=== PATIENT | female | born 1990 | race Caucasian/White ===

== ENCOUNTER 2024-06-11 12:49 | Outpatient (CLI) | payer OTHER, SELFPAY ==
[2024-06-11 13:06] LABS: Hematocrit 35.5 % (37.0-47.0); Hemoglobin 11.4 g/dL (12.0-15.0)
== END 2024-06-11 12:50 | disposition home or self-care (01) ==
LOC: ANHLAB 12:52
PROVIDERS: Visit Provider Anesthesiology
DX: Z01.818 Encounter for other preprocedural examination (principal); D64.9 Anemia, unspecified
CPT/HCPCS: 36415; 85014; 85018

== ENCOUNTER 2024-06-14 01:16 | Day surgery (SDC) | payer OTHER, SELFPAY ==
[2024-06-10 14:43] VITALS: BMI 50.3
--- NOTE | 2024-06-10 14:50 | PC.NURSE ---
Report to the Outpatient Waiting Room, entrance under the green pavilion located off [facility], at time _1000_ on date _[id number]_. Planned Procedure Time: _1200_. Time changes happen often and if your time is changed the preop area will call you the afternoon before. - You and your visitor will be asked to self-screen and do not enter if you have any COVID symptoms. - A mask is optional within the hospital at this time. Patients may have clear liquids (water, carbonated beverages, clear teas, apple juice) until 3 hours prior to surgery with a maximum of 20 ounces. - No food from midnight until time of surgery Take the following medications with a SIP of water the morning of surgery: _None DO NOT STOP ANY OF YOUR OTHER PRESCRIPTION MEDICATIONS PRIOR TO SURGERY ?EXCEPT THE FOLLOWING Medications to discontinue per physician ____Fish oil Date to take last fewz__[id number] Ryan's office if Ok to continue taking Ibuprofen. Please no make-up, nail faroese, hairspray, perfume, deodorant, or body powder the day of surgery. No jewelry (including any body piercings) or valuables the day of surgery, leave them at home. Please take a shower or bath the night before, or the morning of, surgery with an antibacterial soap. Wear comfortable, loose fitting clothing. - Jewelry must be removed prior to entering the operating room. Rings and piercings that are not removed may be cut off. - The hospital will not accept responsibility for valuables. - Please leave all valuables, including medications, at home the day of surgery. If you are going home after surgery, a licensed racing driver must drive you home. - NO public transportation without another adult if you receive anesthesia. - We recommend that an adult stay with you for 24 hours following discharge. - We also recommend that you do not drive, make important decision, drink alcoholic beverages, or take any drugs that were not prescribed by your health care provider for at least 24 hours after your discharge time. Follow any additional instructions given to you from your surgeon. If you or anyone in your household have experienced Covid symptoms in the past week, please notify your surgeon or the nurse liaison at the phone number below for possible testing. Telephone instructions given to __Coral__and asked if any additional questions and then verbalized understanding. Patient advised to call surgeon office or pre surgery nurse liaison [phone] if any additional questions.
--- NOTE | 2024-06-14 09:22 | WPDANESEPPF ---
Anes - Initial Pre Proc Eval Procedure: Operation Date: 06/14/24 12:00 Proposed Procedures p Hysteroscopy with Biopsy Endometrium and/or Polypectomy, Dilation and Curettage - Edvin Ryan MD Date/Time: 06/14/24 09:22 Surgeon: Edvin Ryan MD Pre Op Diagnosis: Irg Periods Patient Data Age: 34 Gender: F Height: 1.78 m Weight: 159 kg Allergies Allergy/AdvReac Type Severity Reaction Status Date / Time No Known Allergies Allergy Verified 06/14/24 10:51 Home Medications Medication Instructions Recorded Confirmed Type ferrous sulfate, dried 144 mg (45 144 mg PO BID 06/10/24 06/14/24 History mg iron) tablet,extended release (Slow Release Iron) ibuprofen 600 mg tablet 600 mg PO TID 06/10/24 06/14/24 History omega 7-hps-qlw-fish oil 1,200 mg 1 cap PO DAILY 06/10/24 06/14/24 History (144 mg-216 mg) capsule (Fish Oil) Patient hx anesthesia problems: none Family hx anesthesia problems: none Results Review: All pre-operative results and documents have been reviewed as part of the pre-operative evaluation. [facility] Social History Social History Smoking status: Never smoker Alcohol intake: current Living arrangements: with family Spiritual care concerns: No Anes - Eval Final PreProcedure Day of Procedure 06/14/24 09:22 Patient weight: super morbidly obese Heart: regular rate and rhythm Lungs: clear to auscultation Airway: Mallampati scale class III Neurological: alert and oriented Last oral intake: >/= 8 hours ASA classification: III Emergent: no Anesthetic plan: proceed Anesthesia type and monitoring: general GIVS and standard monitoring Results Review: All pre-operative results and documents have been reviewed as part of the pre-operative evaluation. Informed Consent: The patient's anesthetic plan and its attendant risks and benefits were discussed with the patient/family/POA. Questions were solicited and answers provided to the satisfaction of the patient/family/POA.
[2024-06-14 10:43] VITALS: BP 154/99; PULSE 84; RESP 14; TEMP 36.8; O2SAT 100
[2024-06-14] MEDS: LACTATED RINGERS 1,000 ML 30 ML IV CONT (10:48)
[2024-06-14 10:50] LABS: BEDSIDEPREGUCG Negative
[2024-06-14] MEDS: ACETAMINOPHEN 500 MG TABLET 1000 MG PO (10:50)
--- NOTE | 2024-06-14 11:45 | PM.IMHP ---
H&P: HPI History of Present Illness Date/Time: 06/14/24 11:45 Chief Complaint: irregular bleeding Narrative: Patient is a 34 year old female who presents for hysteroscopy and polypectomy. She reports a history of abnormal uterine bleeding since miscarriage in October, with episodes of heavy and weeks-long bleeding. She denies abdominal pain. Pelvic US showed an area suspicious for retained products vs endometrial polyp. She desires surgical management of AUB. Denies abdominal pain, nausea, vomiting, or dysuria today. Review of Systems Review of Systems: All systems reviewed & are unremarkable except as noted in HPI and below PMFSH Social History Social History Smoking status: Never smoker Alcohol intake: current Living arrangements: with family Spiritual care concerns: No Meds Home Medications and Allergies Home Medications Medication Instructions Recorded Confirmed Type ferrous sulfate, dried 144 mg (45 144 mg PO BID 06/10/24 06/14/24 History mg iron) tablet,extended release (Slow Release Iron) ibuprofen 600 mg tablet 600 mg PO TID 06/10/24 06/14/24 History omega 0-gvm-aux-fish oil 1,200 mg 1 cap PO DAILY 06/10/24 06/14/24 History (144 mg-216 mg) capsule (Fish Oil) Allergies Allergy/AdvReac Type Severity Reaction Status Date / Time No Known Allergies Allergy Verified 06/14/24 10:51 Vital Signs Vital Signs - 24 hr 06/14/24 10:43 Temperature 98.2 F Pulse Rate 84 Respiratory Rate 14 Blood Pressure 154/99 H Pulse Oximetry 100 Oxygen Delivery Room Air Exam Const: General: comfortable and no acute distress HENMT: Mouth: Yes moist mucous membranes Resp: Effort & Inspection: normal respiratory effort Cardio: Rate: regular rate Extrem: General: normal to inspection Psych: Mental Status: mental status grossly normal Assessment and Plan Assessment and plan (1) Abnormal uterine bleeding (AUB): Code(s): N93.9 - Abnormal uterine and vaginal bleeding, unspecified Status: Acute Assessment and Plan: - heavy and irregular bleeding since October (s/p miscarriage) - Previously normal and regular periods - pelvic US demonstrates 18mm endometrium with vascularity similar to polyp or retained products of conception - risks and benefits of hysteroscopy and polypectomy discussed with patient who desires to proceed with procedure
--- NOTE | 2024-06-14 11:49 | WPDHPUPDATE1 ---
History and Physical Update Update Date/Time: 06/14/24 11:49 History and Physical has been reviewed, including an updated exam of the patient. There are NO changes in the patient's condition. Risks, benefits, and alternatives have been discussed and questions answered. Patient agrees to proceed with procedure.
--- NOTE | 2024-06-14 12:01 | P.OP_ITS ---
Procedure Note - Detailed Date of Procedure 06/14/24 Pre-op Diagnosis Irg Periods Post-op Diagnosis Same Procedure Performed hysteroscopy and polypectomy Surgeon Edvin yRan MD Anesthesia MAC and Local Findings Shaggy endometrium seen throughout cavity Description of Procedure The patient was taken to the operating room with IVFs running. She was placed into the dorsal supine position where she received MAC without any difficulty. The patient was placed in the dorsal lithotomy position using Fantasma stirrups. EUA revealed findings as above. She was then prepped and draped in a normal sterile fashion. A time-out procedure was performed and all members of the OR team agreed on the patient and plan. A bivalve speculum was then inserted into the patient's vagina. The anterior lip of the cervix was grasped with a single tooth tenaculum. The uterus was gently sounded to 10 cm. The hysteroscope was then inserted into the uterine cavity using saline as the distension media and revealed the above findings. Both ostia were identified and pictures were taken. At this point, the morcellator was then introduced into the hysteroscope and calibrated. The tip of the morcellator was then applied to the endometrium. A broad sampling of the endometrium was obtai jaleel. The fluid deficit was 100 cc. The specimen was sent for pathology. The hysteroscope and tenaculum were removed. The speculum was then reintroduced into the vagina and the anterior lip of the cervix was hemostatic. The speculum was then removed. The patient tolerated the procedure well. Sponge, lap, and instrument counts were correct X2. The patient was taken out of the dorsal lithotomy position and was awakened from anesthesia. She was taken to the recovery room in stable condition. Estimated Blood Loss 10 Pathology Yes Complications No immediate complications Condition Stable Disposition Same day
[2024-06-14] MEDS: LIDO 1%/EPINEPHRINE 1:100,000 20 ML VIAL 10 ML INFILTRATE (12:47)
[2024-06-14] MEDS: SILVER NITRATE (*SP) STICK 2 EACH TOPICAL (13:00)
[2024-06-14 13:06] VITALS: BP 142/68; PULSE 94; RESP 12; O2SAT 95
[2024-06-14 13:35] VITALS: BP 152/86; PULSE 75
[2024-06-14 14:05] VITALS: BP 156/84; PULSE 73
== END 2024-06-14 14:25 | disposition home or self-care (01) ==
PROVIDERS: Anesthesiology; Visit Provider Obstetrics & Gynecology
PROC: 0U5B8ZZ Destruction of Endometrium, Via Natural or Artificial Opening Endoscopic (ICD-10-PCS; CPT 58563; principal; 2024-06-14 12:00)
DX: N93.9 Abnormal uterine and vaginal bleeding, unspecified (principal); E66.01 Morbid (severe) obesity due to excess calories; Z68.43 Body mass index [BMI] 50.0-59.9, adult; Z79.1 Long term (current) use of non-steroidal anti-inflammatories (NSAID)
CPT/HCPCS: 58558; 36415; 85014; 85018; 88305; A9270; J1885; J2250; J2405; J2704; J3010; J7120

== ENCOUNTER 2025-08-31 17:55 | Observation (INO) | payer OTHER, SELFPAY ==
[2025-08-31] VITALS (37 sets, daily range): BP systolic 149–179; BP diastolic 79–89; PULSE 81–94; RESP 18; TEMP 36.3–36.8; O2SAT 97–100; BMI 54.2
[2025-08-31 17:27] LABS: Hematocrit 33.6 % (37.0-47.0); Hemoglobin 11.1 g/dL (12.0-15.0); Immature Granulocyte Percent A 0.4 % (0-0.5); Lymphocytes Absolute Auto 1.37 K/mm3 (0.9-3.2); Mean Corpuscular HGB Conc 33.0 g/dl (32-36); Mean Corpuscular Hemoglobin 29.3 pg (26-34); Mean Corpuscular Volume 88.7 fl (80-100); Nucleated Red Blood Cells Absolute Auto 0.000 K/mm3 (0.0-0.012); Nucleated Red Blood Cells Perc 0.0 % (0.0-0.2); Platelet Count Result 226 k/mm3 (150-375); Red Blood Count 3.79 M/mm3 (4.2-5.4); White Blood Count 10.0 K/mm3 (4.5-10.0)
[2025-08-31 17:31] LABS: Add Urine Microscopic? YES; Appearance Urine Clear (Clear); Glucose Urine UA Negative (Negative); Leukocyte Esterase Ur Trace LEU/UL (Negative); Nitrate Urine Negative (Negative); Non Pathogenic Casts 0-2; Specific Grav Ur 1.010 (1.001-1.035)
[2025-08-31 17:36] LABS: Total Protein Urine Random 20 mg/dL; Ur Ttl Prot Creatinine Ratio 0.39 mg/mg (0-0.20)
[2025-08-31 17:38] LABS: Alanine Aminotransferase 19 U/L (6-35); Albumin Level 3.4 g/dL (3.5-5.1); Alkaline Phosphatase 159 U/L (38-126); Anion Gap 7 mmol/L (4-12); Aspartate Amino Transferase 17 U/L (14-36); Bilirubin,Total 0.7 mg/dL (0.2-1.3); Blood Urea Nitrogen 8 mg/dL (7-17); Calcium 9.7 mg/dL (8.4-10.2); Carbon Dioxide 21 mmol/L (22-30); Chloride 106 mmol/L (98-107); Estimated CRCL calculation 210 ml/min; Estimated Glomerular Filt Rate > 60; Glucose 123 mg/dL (65-110); Potassium 3.9 mmol/L (3.4-5.0); Sodium 134 mmol/L (137-145); Total Protein 7.0 g/dL (6.3-8.2); Uric Acid 3.1 mg/dL (2.5-7.5)
--- OUTSIDE RECORDS SUMMARY | 2025-08-31 17:52 | XMS_ITS | Clinical Summary ---
Author Organization Address [address] [place] [id number] Care Team Providers Care Paralegal Secretary Name Role Phone Barb Loredo NP Primary Care Provider [phone] Allergies No known active allergies Medications Slow Release Iron 144 mg (45 mg iron) tablet extended release Take 1 tablet by mouth 03/06/2024 Active ibuprofen (ADVIL,MOTRIN) 600 mg tablet Take 1 tablet (600 mg total) by mouth every 6 (six) hours as needed for pain Active omega-3 fatty acids-fish oil 300-1,000 mg capsule Take 2 capsules (2 g total) by mouth daily Active Active Problems Problem Noted Date Diagnosed Date Hypertriglyceridemia 04/23/2024 Assessment & Plan (04/23/2024 7:34 PM CDT): - recent triglycerides 161, LDL 121, HDL 44 - overall stable with low ASCVD risk - lifestyle modifications, [place] supplementation - repeat lipid profile Abnormal uterine bleeding 04/23/2024 Assessment & Plan (04/23/2024 7:37 PM CDT): - vaginal US (04/07/2024): Thickened endometrium with multiple small cystic spaces - patient did not want to start hormonal control - continue ibuprofen 600 mg- max of q.6-8 hours p.r.n. for heavy bleeding - awaiting phone circuit operator eval Menorrhagia with irregular cycle 03/14/2024 Assessment & Plan (03/14/2024 11:18 PM CDT): - check CBC, iron profile, ferritin, serum HCG, TSH - most recent hemoglobin 11.5 - start ibuprofen 600 mg every 6 hours p.r.n. to decrease bleeding - pelvic and endovaginal ultrasound - referral to phone circuit operator Hypochromic anemia 03/14/2024 Assessment & Plan (04/23/2024 7:31 PM CDT): - associated with prolonged menstrual bleeding - recent counts stable- hemoglobin 11.1, hematocrit 36, MCV 83.5, MCH 25.8 - iron studies stable - continue ferrous sulfate b.i.d. with breakfast and dinner Assessment & Plan (03/14/2024 11:22 PM CDT): - associated with prolonged menstrual bleeding - most recent hemoglobin 11.5, hematocrit 36, MCV 83.5, MCH 25.8 - take ferrous sulfate b.i.d. with breakfast and dinner- take with vitamin-C or acidic foods such as an orange to enhance absorption, avoid consuming coffee, tea, soda, wine, mild/dairy products within 2 hours of supplement as this will inhibit absorption - follow repeat labs Class 3 severe obesity witho ut serious comorbidity with body mass index (BMI) of 50.0 to 59.9 in adult 03/14/2024 Assessment & Plan (03/14/2024 11:24 PM CDT): - avoid/limit processed, fried/fast foods and simple/refined carbohydrate. Aim to eat plenty of vegetables, whole grains, legumes, lean protein, low-fat dairy, fruit, and include some healthy fats such as olive oil, nuts, avocados, and baked fatty fish such as salmon. - aim to walk at least 30 minutes most days of the week, strength training at least 2-3 times per week-when possible Missed ab 10/19/2023 Resolved Problems Problem Noted Date Diagnosed Date Resolved Date Morbid obesity with BMI of 50.0-59.9, adult 03/14/2024 03/14/2024 Immunizations Immunization Administration Dates Next Due DTP 02/26/1996, 3,04/05/1992,1991, 1 Hep B, Unspecified 02/26/1996,08/22/1995, 995 Hib (PRP-T) 07/27/1993,04/05/1992,1991 ,1991 Influenza, Unspecified 09/09/2023(Deferr ed: Patient Refused),08/25/2023(Deferred: Patient Refused) MMR 07/20/1996,07/27/1993 OPV 02/26/1996,07/27/1993,1991 ,1991 Surgical History Surgery Date Site/Laterality Comments TONSILLECTOMY Bilateral age 10-11 Family History Medical History Relation Name Comments Hypertension Maternal Grandmother Breast cancer Maternal Great-Grandmother Relation Name Status Comments Maternal Grandmother Maternal Great-Grandmother Social History Tobacco Use Types Packs/Day Years Used Date Smoking Tobacco: Never Smokeless Tobacco: Never Tobacco Cessation:Counseling Given: Not Answered AUDIT-C Answer Date Recorded Q1: How often do you have a drink containing alcohol? Never 03/12/2024 Q2: How many drinks containi ng alcohol do you have on a typical day when you are drinking? Patient does not drink Q3: How often do you have si x or more drinks on one occasion? Never 03/12/2024 PHQ-2 Answer Date Recorded PHQ-2 Total Score (If total score is 3 or more points, staff should administer the PHQ-9) 0 03/12/2024 Personal Safety Answer Date Recorded Have you ever been in or are you currently in a harmful physical or emotional relationship or is someone making you feel afraid or unsafe? Denies 03/05/2024 Comments No Sex and Gender Information Value Date Recorded Sex Assigned at Not on file Legal Sex Female 12:28 AM CDT Gender Identity Not on file Sexual Orientation Not on file Obstetrics History Para Term AB IAB SAB Ectopic Multiple Livin g Live Births 2 1 1 1 1 1 1 Date Outcome GA Total Labor Labor/2nd/3rd Weight Sex Type Anes PTL Jade A1 A5 Name Clin 013 Term 38w 0d 3.657 kg (8 lb 1 oz) M Vag-S pont Living Complications: Elina mckenna Hypertension 023 SAB 10w 3d Last Filed Vital Signs Vital Sign Reading Time Taken Comments Blood Pressure 120/80 05/14/2024 8:54 AM CDT Pulse 101 05/14/2024 8:54 AM CDT Temperature 36.6 C (97.9 F) 05/14/2024 8:54 AM CDT Respiratory Rate 20 03/05/2024 7:01 PM CDT Oxygen Saturation 94% 05/14/2024 8:54 AM CDT Inhaled Oxygen Concentration - - Weight 162.9 kg (359 lb 1.6 oz) 05/14/2024 8:54 AM CDT Height 177.8 cm (5' 10) 05/14/2024 8:54 AM CDT Body Mass Index 51.53 05/14/2024 8:54 AM CDT Plan of Treatment Health Maintenance Due Date Last Done Comments Cervical Cancer Screening 1991 Hepatitis C Screening 1991 DTaP/Tdap/Td Vaccine (6 - Tdap) 2002 02/26/1996, 07/27/1993, 04/05/1992, Additional history exists Varicella Vaccines (1 of 2 - 13+ 2-dose series) 2004 Regular Well Visit/Exam 18-64 2009 HPV Vaccines (1 - 3-dose SCDM series) 2018 Depression Screening 03/12/2025 03/12/2024 Influenza Vaccine (#1) 2025 Hepatitis B Screening Completed 02/26/1996 , 08/22/1995, 07/09/1995 Pneumococcal vaccine <65 Aged Out No longer eligible based on patient's age to complete [place] [address] [employer] OPEN ACCESS Care Teams Paralegal Secretary Relationship Specialty Start Date End Date Barb Loredo NP PCP - General [employer] Equipment Mechanic 03/12/24
--- OUTSIDE RECORDS SUMMARY | 2025-08-31 17:52 | XMS_ITS | Clinical Summary ---
Author Organization [facility] Address [address] [place] [address] Care Team Providers Care Printing Assistant Name Role Phone Unavailable Primary Care Provider Unavailabl e Medications No known medications Active Problems Problem Noted Date Diagnosed Date Missed ab 10/19/2023 Family History Medical History Relation Name Comments Breast Cancer Maternal Great-grandmother Colon Cancer Neg Hx Ovarian Cancer Neg Hx Relation Name Status Comments Maternal Great-grandmother Alive Social History Tobacco Use Types Packs/Day Years Used Date Smoking Tobacco: Never Smokeless Tobacco: Never Tobacco Cessation:Counseling Given: Not Answered Alcohol Use Standard Drinks/Week Comments Not Currently 0 (1 standard drink = 0.6 oz pur e alcohol) Feeling Safe Answer Date Recorded Are you in a relationship wi th someone who hurts you emotionally and/or physically? No 10/18/2023 Comments No Sex and Gender Information Value Date Recorded Sex Assigned at Not on file Legal Sex Female 10:38 AM CDT Gender Identity Not on file Sexual Orientation Not on file Last Filed Vital Signs Vital Sign Reading Time Taken Comments Blood Pressure 144/76 10/19/2023 12:30 AM JUNIOR PROJECT MANAGER Pulse 91 10/06/2023 3:54 PM JUNIOR PROJECT MANAGER Temperature - - Respiratory Rate - - Oxygen Saturation - - Inhaled Oxygen Concentration - - Weight 161.9 kg (357 lb) 10/18/2023 11:21 PM JUNIOR PROJECT MANAGER Height 177.8 cm (5' 10) 10/18/2023 11:21 PM JUNIOR PROJECT MANAGER Body Mass Index 51.22 10/18/2023 11:21 PM JUNIOR PROJECT MANAGER Plan of Treatment Health Maintenance Due Date Last Done Comments DTAP/TDAP/TD VACCINES (6 - Tdap) 2002 02/26/1996, 07/27/1993, 04/05/1992, Additional history exists HPV/Cotest (21-29) 2012 HPV VACCINES (1 - 3-dose SCD M series) 2018 CERVICAL CANCER SCREENING 2021 HPV/Cotest (30-65) 2021 PAP SMEAR 2021 INFLUENZA VACCINE (#1) 2025 HEPATITIS B VACCINES Completed 02/26/1996, 08/22/1995, 07/09/[address] [place] [address] [facility] O Advance Directives For more information, please contact: [phone] * Full Code (Latest Code Status on File) Date Activated Date Inactivated Comments 10/18/2023 11:26 PM 10/19/2023 4:17 AM
--- OUTSIDE RECORDS SUMMARY | 2025-08-31 17:52 | XMS_ITS | Data Portability ---
Author Organization [facility] [place] Address [address] [place] [address] Assessment Encounter Date Assessment Date Assessment LastModified by Organization Details LastModified Time 08/26/2025 08/26/2025 Patient is _33__weeks . Discussed plan. [email or web address] Not available 08/26/2025 10:47:11 08/31/2025 08/31/2025 Patient is _34__weeks . Discussed plan. Not available 08/31/2025 17:38:43 Plan of Treatment Reminders Order Date Submit Date Provider Last Modified By Organization Details Last Modified Time Details Appointments U/S OB BPP 2024 04:30P M ULTRASOUND Not available Not available Not available OB ROUTINE 2024 05:00P M Sondra Jesus CNM Not available Not available Not available U/S OB BPP 2024 02:30P M ULTRASOUND Not available Not available Not available NST 2024 03:00P M NST SCHEDULE Not available Not available Not available OB ROUTINE 2024 03:30P M JEANETH RYAN MD Not available Not available Not available U/S OB BPP 2024 09:00A M ULTRASOUND Not available Not available Not available NST 2024 09:30A M NST SCHEDULE Not available Not available Not available OB ROUTINE 2024 10:00A M JEANETH RYAN MD Not available Not available Not available U/S OB BPP 2024 09:30A M ULTRASOUND Not available Not available Not available NST 2024 10:00A M NST SCHEDULE Not available Not available Not available OB ROUTINE 2024 10:45A M JEANETH RYAN MD Not available Not available Not available Lab None recorde d. Referral None recorde d. Procedures None recorde d. Surgeries None recorde d. Imaging non-str ess test 2024 [email or web address] [facility], [address], [place], [address], 08/26/2025 10:47:09 US, obstetr ic, biophys ical profile + non-str ess test 2024 025 ELIANE [facility], [address], [place], [address], 08/26/2025 13:01:12 Medication Orders None recorde d. Patient TargetsNo targets recorded. Patient InstructionsNo instructions recorded. Reason for Referral None Reported. Results Created Date Observation Date Name Description Value Unit Range Abnormal Flag Note LastModifiedBy Organization Detail LastModifiedTime 08/16/2008/16/2025 US, obste tric, follo w-up No observ ation record ed. [email or web address] [facility] [address], [place], [address], 08/16/2025 16:46:22 08/16/2008/16/2025 US, obstvalente tric, bioph ysica l profi le + non-s tress test No observ ation record ed. [email or web address] [facility] [address], [place], [address], 08/16/2025 16:46:32 08/16/2008/16/2025 US, obste tric, follo w-up No observ ation record ed. [email or web address] [place] [address], [place], [address], 08/16/2025 17:03:25 08/16/20 25 08/16/2025 non-s tress test No observ ation record ed. [email or web address] [place] [address], [place], [address], 08/19/2025 17:43:10 08/16/20 non-s tress test No observ ation record ed. [email or web address] [facility] [address], [place], [address], 08/19/2025 17:43:11 08/26/2008/26/2025 US, obste tric, follo w-up No observ ation record ed. [email or web address] [address] [address], [place], [address], 08/26/2025 12:11:40 08/26/2008/26/2025 US, obste tric, bioph ysica l profi le + non-s tress test No observ ation record ed. [email or web address] [facility] [address], [place], [address], 08/26/2025 13:01:12 08/26/2008/26/2025 non-s tress test No observ ation record ed. [email or web address] [place] [address], [place], [address], 08/26/2025 10:41:31 Result Notes None recorded. Problems Name Problem SNOMED Code Status Onset Date Resolution Date Notes Provider Name and Address Organization Details Recorded Time Past history of gestation al hypertens ion 532306158 Active 2024 Sondra Jesus CNM [address], [place], [address], [place] [facility] 09:42:17 58085601 Active 2024 Caprice Rojas [facility], [place] - [facility] 5 09:30:00 Obesity 278890767 Active 2024 testing 162 mg bASA Sondra Jesus CNM [address], [place], [address], [facility] 09:41:59 Past history of gestation al hypertens ion 280756086 Active 2024 Sondra Jesus CNM [address], [place], [address], [facility] 09:42:17 Hypertens mushtaq disorder 19410246 Active 2024 labetalol 200mg bid , BP BID at home bASA x2 daily - home cuff c/w office cuff, white coat HTN, normal at home - baseline labs wnl JEANETH RYAN MD [address], [place], [address], [facility] 12:15:27 Anemia 635850864 Active 2024 Hgb 10.9 at new OB labs JEANETH RYAN MD [address], [place], [address], [facility] 12:17:50 History of abnormal cervical Papanicol aou smear 679772579 Active 202404/05/2025 neg pap HPV high risk Caprice Rojas null, [facility] 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 12:17:38 Problem Notes None recorded. Procedures Surgical History Date Name Laterality Status Provider Name and Address Organization Details Recorded Time 04/05/20 25 Date of Last Pap Smear completed Caprice Rojas [facility] 04/05/2025 10:02:32 06/14/20 24 hysteroscopic excision of polyp of uterus completed JEANETH RYAN MD [address], [place], [address], [facility] 08/04/2024 15:15:19 11/17/19 08 Tonsillectomy completed Deisy Siegel [facility] 05/04/2024 15:03:38 Imaging Results None recorded. Procedure Notes None recorded. Medical Equipment None Reported. Allergies No known drug allergies Medications Name Sig Start Date Stop Date Status Note LastModified by Organization Details LastModified Time slow release iron 45mg tablets TAKE 1 TABLET BY MOUTH 2 TIMES A DAY WITH MEALS 05/04 completed Not Available Not Available Not Available medroxyprog esterone 10 mg tablet Take 1 tablet every day by oral route for 10 days. 03/07 completed Not Available Not Available Not Available prednisone 10 mg tablet TAKE 3 TABLETS BY MOUTH DAILY FOR 3 DAYS THEN TAKE 2 TABLETS BY MOUTH DAILY FOR 3 DAYS THEN TAKE 1 TABLET BY MOUTH DAILY FOR 3 DAYS 06/22 completed Not Available Not Available Not Available doxycycline hyclate 100 mg capsule TAKE ONE CAPSULE BY MOUTH TWICE DAILY X 5 DAYS 06/22 completed Not Available Not Available Not Available labetalol 200 mg tablet TAKE 1 TABLET BY MOUTH TWICE DAILY active Not Available Not Available No t Available benzonatate 200 mg capsule TAKE 1 CAPSULE BY MOUTH 2 TO 3 TIMES PER DAY NEEDED FOR COUGH 03/07 completed Not Available Not Available Not Available doxycycline monohydrate 100 mg tablet TAKE 1 TABLET BY MOUTH TWICE DAILY FOR 10 DAYS 05/04 completed Not Available Not Available Not Available amoxicillin 500 mg tablet TAKE 1 TABLET BY MOUTH EVERY 8 HOURS UNTIL ALL TAKEN 08/25 completed Not Available Not Available Not Available ondansetron 8 mg disintegrat ing tablet DISSOLVE 1 TABLET ON THE TONGUE TWICE DAILY 04/04 completed Not Available Not Available Not Available ibuprofen 600 mg tablet 06/22 completed Not Available Not Available Not Available letrozole 2.5 mg tablet TAKE 2 TABLETS BY MOUTH EVERY DAY FOR 5 DAYS 03/07 completed Not Available Not Available Not Available Fish Oil 03/07 completed Not Available Not Available Not Available iron 1 daily active Not Available Not Avail able Not Available active Not Available Not Avai lable Not Available Baby Aspirin 1 daily active Not Available Not Available Not Available Slow Release Iron 140 mg (45 mg iron) tablet,exte nded release 05/04 completed Not Available Not Available Not Available Slow Release Iron 144 mg (45 mg iron) tablet,exte nded release TAKE 1 TABLET BY MOUTH TWICE DAILY WITH MEALS 08/02 completed Not Available Not Available Not Available Vitals Date Recorded Body height Body mass index (BMI) Body weight Systolic And Diastolic Provider Name and Address Organization Details Last Updated DateTime 08/26/2025 177.8 cm 54.1 kg/m2 450250.32 g 137/83 mm[Hg] [facility] 08/26/2025 10:32:47 Date Recorded Body height Body mass index (BMI) Body weight Systolic And Diastolic Systolic And Diastolic Provider Name and Address Organization Details Last Updated DateTime 08/31/2025 177.8 cm 55 kg/m2 171058.8 8 g 161/95 mm[Hg] 167/95 mm[Hg] [facility] 17:26:20 Social History Question Answer Notes LastModified by Organizat ion Details LastModified Time Tobacco Smoking Status Never Smoker Deisy Siegel [facility] 05/04/2024 15:03:15 Do You Have An Advance Directive? No Information n ot available 03/07/2025 If You Are , What Was Your Level Of Alcohol Consumption Prior To ? Occasional [email or web address] Information not available 04/05/2025 Are You Blind Or Do You Have Difficulty Seeing? No Information n ot available 05/04/2024 What Is Your Level Of Caffeine Consumption? Moderate Information not available 05/04/2024 How Much Tobacco Do You Chew? None Information not available 04/05/2025 In The 14 Days Before Symptom Onset, Have You Had Close Contact With A Laboratory-confirm ed COVID-19 While That Case Was Ill? No Information n ot available 05/04/2024 In The 14 Days Before Symptom Onset, Have You Had Close Contact With A Person Who Is Under Investigation For COVID-19 While That Person Was Ill? No Information not available 05/04/2024 Have You Been To An Area Known To Be High Risk For COVID-19? No Information not available 05/04/2024 Are You Deaf Or Do You Have Serious Difficulty Hearing? No Information not available 05/04/2024 What Type Of Diet Are You Following? REGULAR Information n ot available 05/04/2024 What Is The Highest Grade Or Level Of School You Have Completed Or The Highest Degree You Have Received? [id number] Information not available 03/07/2025 Are There Any Guns Present In Your Home? No Information not available 05/04/2024 Do You Use Protection During Sex? No Information not available 05/04/2024 Do You Use Your Seat Belt Or Car Seat Routinely? Yes Information not available 05/04/2024 Do You Have Smoke And Carbon Monoxide Detectors In Your Home? Yes Information not available 05/04/2024 How Much Tobacco Do You Smoke? No Information not available 05/04/2024 Do You Use Sunscreen Routinely? No Information not available 05/04/2024 Have You Used IV Drugs? No Information not available 05/04/2024 Do You Have Difficulty Walking Or Climbing Stairs? No [email or web address] Information not available 04/05/2025 Sex: Unknown Functional Status Question Answer Note LastModified by Organizat ion Details LastModified Time Do you use any illicit or recreational drugs? No Information not available 05/04/2024 What is your level of alcohol consumption? None [email or web address] Information not available 04/05/2025 Are you able to walk independently without assistance or assistive devices? [email or web address] Information not available 05/04/2024 Are you able to care for yourself independently? 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 No [email or web address] Information not available 04/05/2025 What is your exercise level? Occasional Information not available 05/04/2024 Mental Status Question Answer Note LastModified by Organization D etails LastModified Time Do you feel stressed (tense, restless, nervous, or anxious, or unable to sleep at night)? [id number] Information not available 03/07/2025 Family History Relationship Description Onset Age of this Age Resolved Age Notes LastModified by Organization Details LastModified Time Unspecified Relation Family history unknown Not available 2023 15:00:07 Medical History Condition Response Allergies (Food, seasonal, environmental ) N Other Y Breast Cancer N Drug/Latex Allergies/Reactions N Blood Transfusion N Dermatologic Disorders N Lung Disease N Defects or Inherited Disease N Breast Problem N Gestational Diabetes N Hematologic disorders N Anesthesia Complications N History of STI Y Deep Vein Thrombosis N Polycystic ovary syndrome N Anxiety Disorder N Autoimmune disease N Arthritis N Infertility N Polyps N Acid Reflux (GERD) N History of abnormal pap Y Cancer N Stroke N Varicosities N Neurologic/Epilepsy N Endometriosis N High Cholesterol N Headaches N Fibromyalgia N Kidney Disease N Heart Problems N Kidney or Bladder Problems N Thyroid Problems N GI Problems N Eating Disorder N Anemia Y Art (IVF or FET) N Psychiatric Illness N Ovarian Cancer N Diabetes N Pulmonary (TB, Asthma) N Hepatitis/Liver Disease N No Past Medical History N Eczema N Urinary Tract Infection N Abuse/Domestic Violence N Asthma N Trauma/Violence N Depression/ depression N Heart Disease N Pre-Eclampsia N Hypertension Y Osteoporosis N Thrombophilias N Gynecological History Statement/Question Response Date of Last Mammogram Flow Moderate Date of LMP 01/02/2025 N Was last menstrual period normal Y STIs/STDs Y Date of Last Colonoscopy None Desired Control Method None Abnormal Pap Y On BCP's at Conception? N Colposcopy HPV Vaccine N Duration of Flow (days) 5 Current Control Method Age at First Child 23 Are cycles usually normal Y Frequency of Cycle (Q days) 29 Sexually Active? Y Menses Monthly Y Date of DEXA bone scan Age of first menstrual cycle 14 Date of Last Pap Smear 04/05/2025 Sexual Problems? N LMP Definite N Obstetrics History GPAL:G 3 P 1 0 1 1 Type Value Full Term 1 Spontaneous 1 Living 1 Total 3 Past Encounters Encounter ID Performer Location Encounter Start Date Encounter Closed Date Diagnosis/Indication Diagnosis SNOMED-CT Code Diagnosis ICD10 Code Diagnosis IMO Codes Diagnosis Note [id number] ANGELICA RocaNEIDA [place] [address] [address] 05/04/2024 14:29:16 05/04/2024 16:53:54 Irregular periods 60648010 N92.6 Abnormal u terine bleeding 9401808276 9100 N93.9 Detailed health hx obtained and reviewed todaydiscu ssed AUB hx which warrants further evaluation pelvic u/s scheduled for todaylabs orderedMD f/u scheduled following u/s (Discussed pt case and plan with Dr. Ryan)pre cautions discussed, questions answereden couraged PCP f/u for BP, BP precaution s discussed Patient is to contact office or go to nearest ED/Urgent care if fever >/= 100.1, pain, excessive bleeding, unusual drainage or swelling in area of concern; or experienci ng worsening sx's or new onset of concerning sx's. Understand ing verbalized . All questions answered to patient satisfacti on. Time spent in visit is a total of 30 mins with at least 50% of visit consisting of counseling and review of plan of care. [id number] Corwin Pandey MD [facility] [address] [address] 05/04/2024 17:03:54 05/04/2024 18:35:10 Abnormal uterine bleeding 8792753447 9100 N93.9 [id number] JEANETH RYAN MD [place] [address] [address] 05/12/2024 16:35:25 05/13/2024 12:00:16 Irregular periods 98429874 N92.6 - abnormal since February, no inciting factor- had two normal periods following miscarriag e in October, had negative UPT- no hx of irregular periods, always monthly prior to February- hCG negative- pelvic US demonstrat es 18mm endometriu m with vascularit y similar to polyp vs retained products of conception - recommend hysterosco py D&C and polypectom y for diagnosis and treatment- r/b/a of the procedure discussed with patient who desires to proceed with above procedure [id number] JEANETH RYAN MD [place] [address],[place] [address] 06/22/2024 17:34:22 06/24/2024 15:45:58 Postoperative visit 626316428 Z48.89 - s/p hysterosco py and D&C 06/14- meeting post op milestones - pathology disordered proliferat mushtaq endometriu m- discussed importance of regular periods; recommend cyclic provera as patient is TTC- patient to track cycles; if periods become regular and have +OPKs, ok to try for 9 months - 1 year prior to further evaluation JEANETH RYAN MD [place] [address],[place] [address] 08/04/2024 14:35:51 08/04/2024 15:32:15 Anovulation 73488056 N97.0 - irregular bleeding likely 2/2 anovulator y cycles- hysterosco py D&C showed disordered proliferat mushtaq endometriu m- would still like to attempt - discussed provera course to induce withdrawal bleed and regulate cycles; if not successful , could consider letrozole for ovulation induction- r/b discussed with patient who voices understand ing- patient to call clinic following Provera course and bleeding to discuss next steps [id number] Coriwn Pandey MD [facility] [address],[place] [address] 03/02/2025 14:46:21 03/02/2025 15:09:39 [id number] Corwin Pandey MD [facility] [address],[place] [address] 03/07/2025 11:24:34 03/07/2025 12:47:03 Nausea and vomiting 87562085 R11.2 [id number] Amenorrhea 84412005 N91. 2 [id number] this patient is a 34-year-ol d female who presents for amenorrhea . She is a positive test. Ultrasound revealed a 1st trimester gestation. Patient has no complaints . We talked about early care. Talked about genetic screening. We talked about her ultrasound results. We talked about the 12 week ultrasound that has genetic screening components . She was given recommenda tions on exercise, diet, over-the-c ounter medication s. We reviewed her obstetric history. We reviewed her medical history. We reviewed her social history. She will begin routine care at her next visit. [id number] Corwin Pandey MD [facility] [address],[place] [address] 03/30/2025 16:07:23 03/30/2025 17:08:35 screening 153216705 Z36.82 Z3A.12 2068336202 [id number] Sondra Jessu [facility] [address],[place] [address] 03/30/2025 16:07:57 03/31/2025 17:47:37 Gestation period, 12 weeks 65650298 Z3A.12 3323011 care status 24 5595399 Z34.80 9411175508 [id number] Sondra Jesus [facility] [address],[place] [address] 04/05/2025 09:06:34 04/05/2025 10:48:20 Gynecologic examination 84700943 Z01.419 Z11.51 Hypertensive disorder 38 917954 I10 02546703 [id number] JEANETH RYAN MD [place] [address],[place] [address] 04/29/2025 13:39:44 04/29/2025 14:42:00 Chronic hypertension complicating AND/OR reason for care during 58592708 O10.919 25805312 - asymptomat ic- BP normal at home, elevated in the office- will bring BP cuff for verificati on next visit- continue labetalol 200 BID Gestation period, 16 weeks 38235529 Z3A.16 1567550 [id number] JEANETH RYAN MD [facility] [address],[place] [address] 05/24/2025 16:46:48 05/24/2025 18:15:30 Ultrasound scan - obstetric 990554334 Z36.3 O99.210 Z3A.20 [id number] [id number] JEANETH RYAN MD [facility] [address],[place] [address] 05/24/2025 16:47:31 05/26/2025 12:26:29 Large for gestation age fetus 877531400 O36.60X0 72545893 - EFW 95% at 20 weeks- serial growth US Hypertensive disorder 38 983281 I10 86614483 - labetalol 200mg BID- baseline labs wnl- BP normotensi ve at home, office cuff c/w home cuff, likely white coat HTN- monitor closely- continue ASA 162mg Obesity 494799378 E66.9 8056394598 - ASA 162mg- testing at 34 weeks Gestation period, 20 weeks 55148715 Z3A.20 5589286 [id number] JEANETH RYAN MD [facility] [address],[place] [address] 06/24/2025 10:42:34 06/24/2025 14:06:11 care status 982493813 Z34.80 7874911802 Obesity 517932384 E66.9 5872736728 - ASA 162mg- testing at 34 weeks Past pregn keren history of gestational hypertension 171390226 Z87.59 34246009 Hypertensive disorder 38 009268 I10 91037297 - labetalol 200mg BID- baseline labs wnl- BP normotensi ve at home, office cuff c/w home cuff, likely white coat HTN- monitor closely- continue ASA 162mg Gestation period, 24 weeks 022603434 Z3A.24 4639538 [id number] MD Barbara VELA [address],[place] [address] 06/24/2025 10:43:07 06/24/2025 12:20:31 anatomy study 360329072 Z36.2 O36.60X0 O99.210 Z3A.24 [id number] MD Barbara VELA [address],[place] [address] 07/22/2025 10:05:39 07/22/2025 10:58:12 Anemia 831403896 D64.9 41918687 - repeat today Hypertensive disorder 38 426562 I10 32878077 - labetalol 200mg BID- baseline labs wnl- BP normotensi ve at home, office cuff c/w home cuff, likely white coat HTN- monitor closely- continue ASA 162mg Obesity 996631010 E66.9 6123472186 - ASA 162mg- testing at 34 weeks Gestation period, 28 weeks 55894607 Z3A.28 2080671 - continue PNV [id number] JEANETH RYAN MD [facility] [address],[place] [address] 08/05/2025 10:12:26 08/05/2025 10:48:56 Hypertensive disorder 34726984 I10 28202534 - labetalol 200mg BID- baseline labs wnl- BP normotensi ve at home, office cuff c/w home cuff, likely white coat HTN- monitor closely- continue ASA 162mg Past pregn keren history of gestational hypertension 024086352 Z87.59 54132981 Obesity 855020406 E66.9 3496182984 - ASA 162mg- testing at 34 weeks Gestation period, 30 weeks 20074563 Z3A.30 5933641 [id number] JEANETH RYAN MD [facility] [address],[place] [address] 08/16/2025 15:44:36 08/16/2025 17:20:32 Maternal obesity complicating , childbirth and the puerperium, antepartum 6881399209 07 O99.210 7458165724 - ASA 162mg- testing at 34 weeks [id number] JEANETH RYAN MD [facility] [address],[place] [address] 08/16/2025 15:45:12 08/19/2025 08:57:52 Hypertensive disorder 73672260 I10 08301088 - labetalol 200mg BID- baseline labs wnl- BP normotensi ve at home, office cuff c/w home cuff, likely addition of white coat HTN on top of chronic HTN- monitor closely- continue ASA 162mg Obesity 695530411 E66.9 3756872212 - ASA 162mg- testing at 32 weeks Anemia 785739996 D64.9 15404456 - resolved Gestation period, 32 weeks 4755333 Z3A.32 6011894 - continue PNV [id number] JEANETH RYAN MD [facility] [address],[place] [address] 08/16/2025 15:46:36 08/16/2025 16:39:28 Obesity 066694214 O99.213 O16.3 Z3A.32 24116953 - ASA 162mg- testing at 34 weeks [id number] Corwin Pandey MD [facility] [address],[place] [address] 08/26/2025 09:20:17 08/26/2025 10:02:50 Chronic hypertension complicating AND/OR reason for care during 86746974 O10.913 O99.210 Z3A.33 41735913 [id number] Sondra Jesus [facility] [address],[place] [address] 08/26/2025 09:21:07 08/26/2025 10:47:09 Body mass index 40+ - severely obese 363179655 Z68.43 241742 [id number] Sondra Jesus [facility] [address],[place] [address] 08/26/2025 09:21:23 08/26/2025 10:53:58 Gestation period, 33 weeks 86124252 Z3A.33 5708089 [id number] [facility] [address],[place] [address] 08/31/2025 16:48:37 08/31/2025 17:45:37 Gestation period, 34 weeks 49613000 Z3A.34 3427795 Health Concerns Section Related Observation LastModified by Organization Detai ls LastModified Time None Recorded Concern Status LastModified by Organization Details LastModified Time None Recorded Advance Directives Directive N: Payers Insurance Date Sequence Insurance Name Policy Number Policy Espinoza Covered Member ID Espinoza Member ID Guarantor Name 08/30/2025 1 SANGITA [id number] Valerie Arun [id number] Valerie Dias Notes Date Note Type Note Provider Name and Address Organization Details Recorded Time 08/26/2025 text/html Generic HPI TemplateReported by Patient Sondra Jesus CNM [address], [place], [address], [facility] 08/26/2025 10:47:30 08/31/2025 text/html Generic HPI TemplateReported by Patient Sondra Jesus CNM [address], [place], [address], [facility] [facility] 08/31/2025 17:38:57 OBGyn Episode Ob Episode Information Episode Created Date Number of Fetuses Patient Bloodtype Patient rh Status Prepregnancy Weight lbs Domestic Partner Domestic Partner Phone Father Name Wax Bleacher Status 05/04/20 24 1 CLOSED Fetus Data First Name Last Name Admitted to NICU Weight (g) Sex Living Outcome Pediatric Complications Fetus ID Race Codes Race Delivery Type 3656.85 [id number] M Full Term [id number] Vaginal Delivery Jos Calculation Initial Jos Date Initial Exam Date Initial Exam Provider Initial Ultrasound Date Last Menstrual Period Date Ultra Sound Weeks Gestation 0 Eighteen To Twenty Week Jos Update Ultra Sound Date Fundal Height At Umbil Quickening Date Ultra Sound Latest Weeks Gestation Final Jos Confirmed By Final Jos Confirmed Date Final Jos Date Ultra Sound Latest Days Gestation 0 0 Menstrual History Last Menstrual Date Menses Monthly On Bcp Conception Prior Menses Frequency Hcg Plus Date Menarche Onset Age Delivery Information Delivery Date Delivery Type Labor Anesthesia Weeks Gestation Incision Type Labor Labor Length Hrs Delivered By Post Complications Tubal Sterilization Discharge Date Comments 3 38 GHTN Discharge Information Feeding Method Contraceptive Method Maternal HG B and HCT Levels Ob Episode Information Episode Created Date Number of Fetuses Patient Bloodtype Patient rh Status Prepregnancy Weight lbs Domestic Partner Domestic Partner Phone Father Name Wax Bleacher Status 05/04/20 24 1 CLOSED Fetus Data First Name Last Name Admitted to NICU Weight (g) Sex Living Outcome Pediatric Complications Fetus ID Race Codes Race Delivery Type , Spontane ous [id number] Jos Calculation Initial Jos Date Initial Exam Date Initial Exam Provider Initial Ultrasound Date Last Menstrual Period Date Ultra Sound Weeks Gestation 0 Eighteen To Twenty Week Jos Update Ultra Sound Date Fundal Height At Umbil Quickening Date Ultra Sound Latest Weeks Gestation Final Jos Confirmed By Final Jos Confirmed Date Final Jos Date Ultra Sound Latest Days Gestation 0 0 Menstrual History Last Menstrual Date Menses Monthly On Bcp Conception Prior Menses Frequency Hcg Plus Date Menarche Onset Age Delivery Information Delivery Date Delivery Type Labor Anesthesia Weeks Gestation Incision Type Labor Labor Length Hrs Delivered By Post Complications Tubal Sterilization Discharge Date Comments 4 Discharge Information Feeding Method Contraceptive Method Maternal HG B and HCT Levels Ob Episode Information Episode Created Date Number of Fetuses Patient Bloodtype Patient rh Status Prepregnancy Weight lbs Domestic Partner Domestic Partner Phone Father Name Wax Bleacher Status 04/05/20 25 1 A Positive [address] Rodgers OPEN Fetus Data First Name Last Name Admitted to NICU Weight (g) Sex Living Outcome Pediatric Complications Fetus ID Race Codes Race Delivery Type [id number] Problems Problem Notes Problem Name Start Date End Date Resolution Snomed Code Not e Anemia 04/07/2025 [id number] Hgb 10.9 at new OB labs Hypertensive disorder 04/05/2025 [id number] labetalol 200mg bid , BP BID at home bASA x2 daily- home cuff c/w office cuff, white coat HTN, normal at home- baseline labs wnl Human papillomavirus deoxyribonucleic acid detected, high risk on cervical specimen 04/12/2025 [id number] NILM, +HPV ; repeat in 1 year Obesity 04/05/2025 [id number] testing 162 mg bASA Past history of gestational hypertension 04/05/2025 [id number] Jos Calculation Initial Jos Date Initial Exam Date Initial Exam Provider Initial Ultrasound Date Last Menstrual Period Date Ultra Sound Weeks Gestation 10/09/2025 03/02/2025 [email or web address] 03/02/2025 01/02/2025 8 Eighteen To Twenty Week Jos Update Ultra Sound Date Fundal Height At Umbil Quickening Date Ultra Sound Latest Weeks Gestation Final Jos Confirmed By Final Jos Confirmed Date Final Jos Date Ultra Sound Latest Days Gestation 0 10/09/20 25 0 Pre-sharad Flowsheet Flowsheet Date 04/05/2025 Waldron Score Blood Edema Fundus Height Fundus Units Glucose Ketones Leukocytes Nitrite Labor Signs Protein Cervic Dilation Cervic Effacement Cervic Station neg none Type Weight in lbs Pre/Post Dialysis Refused Weight 365.064134956639 BP Diastolic BP Location Tested BP Systolic BP Type 95 157 Fetus Heart Rate Present Fetus Movement A Yes Comments Patient states that having n ausea and vomiting. reviewed vaginal delivery, hx Gestational HTN, most sabiha CHTN, reviewed bps from last visits, plan to get bp cuff, will have rn call to start labetalol 200mg BID, plan testing reviewed US, subchorionic hem, NT and NB wnl, f/u [address] ryan, begin care Flowsheet Date 04/29/2025 Waldron Score Blood Edema Fundus Height Fundus Units Glucose Ketones Leukocytes Nitrite Labor Signs Protein Cervic Dilation Cervic Effacement Cervic Station Type Weight in lbs Pre/Post Dialysis Refused 371.589387715247 BP Diastolic BP Location Tested BP Systolic BP Type 91 L arm 152 sitting Fetus Heart Rate Present Fetus Movement A No Comments Doing well, nausea minimal. BP normal at home, will bring cuff in for verification. Asymptomatic, will order baseline labs. Having a boy! Flowsheet Date 05/24/2025 Waldron Score Blood Edema Fundus Height Fundus Units Glucose Ketones Leukocytes Nitrite Labor Signs Protein Cervic Dilation Cervic Effacement Cervic Station Type Weight in lbs Pre/Post Dialysis Refused BP Diastolic BP Location Tested BP Systolic BP Type Fetus Heart Rate Present Fetus Movement Comments Flowsheet Date 05/24/2025 Waldron Score Blood Edema Fundus Height Fundus Units Glucose Ketones Leukocytes Nitrite Labor Signs Protein Cervic Dilation Cervic Effacement Cervic Station neg none Type Weight in lbs Pre/Post Dialysis Refused Weight 370.746021742737 BP Diastolic BP Location Tested BP Systolic BP Type 89 L arm 159 sitting Fetus Heart Rate Present A Present Fetus Movement A Yes Comments Good movement. No cram ping or bleeding. BP elevated in office, home cuff similar here. At home BP readings 120s/70s-80s. Likely component of white coat HTN, will continue to monitor. Baseline labs wnl. Anatomy US incomplete, need aortic arch and b/l fingers. EFW 95%, repeat in 4 weeks. RTC 4 weeks. Flowsheet Date 06/24/2025 Waldron Score Blood Edema Fundus Height Fundus Units Glucose Ketones Leukocytes Nitrite Labor Signs Protein Cervic Dilation Cervic Effacement Cervic Station Type Weight in lbs Pre/Post Dialysis Refused Weight 369.648593215400 BP Diastolic BP Location Tested BP Systolic BP Type 83 L arm 138 sitting Fetus Heart Rate Present A 140 Fetus Movement A Yes Comments Good movement. No cram ping or bleeding. BP normal today. Repeat anatomy US today. Discussed GCT and labs for next visit. RTC 4 weeks. Flowsheet Date 06/24/2025 Waldron Score Blood Edema Fundus Height Fundus Units Glucose Ketones Leukocytes Nitrite Labor Signs Protein Cervic Dilation Cervic Effacement Cervic Station Type Weight in lbs Pre/Post Dialysis Refused BP Diastolic BP Location Tested BP Systolic BP Type Fetus Heart Rate Present Fetus Movement Comments Flowsheet Date 07/22/2025 Waldron Score Blood Edema Fundus Height Fundus Units Glucose Ketones Leukocytes Nitrite Labor Signs Protein Cervic Dilation Cervic Effacement Cervic Station Type Weight in lbs Pre/Post Dialysis Refused Weight 373.21681540999 BP Diastolic BP Location Tested BP Systolic BP Type 87 L arm 146 sitting Fetus Heart Rate Present A 155 Fetus Movement A Yes Comments Doing well, good movem ent. No cramping or bleeding. GCT and labs today. Discussed tdap vaccine. BP normal at home, asymptomatic. RTC 2 weeks. Flowsheet Date 08/05/2025 Waldron Score Blood Edema Fundus Height Fundus Units Glucose Ketones Leukocytes Nitrite Labor Signs Protein Cervic Dilation Cervic Effacement Cervic Station Type Weight in lbs Pre/Post Dialysis Refused Weight 374.286297439761 BP Diastolic BP Location Tested BP Systolic BP Type 75 L arm 123 sitting Fetus Heart Rate Present A 150 Fetus Movement A Yes Comments Good movement. No cram ping or bleeding. BP normotensive at home. No hypotensive episodes. Having insomnia episodes in the middle of the night. Discussed MIL at 37-39 weeks, patient would like 09/28. Will start testing at 32 weeks. RTC 2 weeks. Flowsheet Date 08/16/2025 Waldron Score Blood Edema Fundus Height Fundus Units Glucose Ketones Leukocytes Nitrite Labor Signs Protein Cervic Dilation Cervic Effacement Cervic Station Type Weight in lbs Pre/Post Dialysis Refused Weight 373.728809204155 BP Diastolic BP Location Tested BP Systolic BP Type 93 L arm 142 sitting Fetus Heart Rate Present Fetus Movement Comments Flowsheet Date 08/16/2025 Waldron Score Blood Edema Fundus Height Fundus Units Glucose Ketones Leukocytes Nitrite Labor Signs Protein Cervic Dilation Cervic Effacement Cervic Station Type Weight in lbs Pre/Post Dialysis Refused 373.496607712446 BP Diastolic BP Location Tested BP Systolic BP Type 83 L arm 142 sitting Fetus Heart Rate Present A Present Fetus Movement A Yes Comments Doing well, good movem ent. No cramping or bleeding. BPP 08/26, suspected LGA fetus EFCW 92% with AC 99%. Breech, discussed ECV vs PCS if persistently breech. Continue weekly testing. RTC 1 week. Flowsheet Date 08/16/2025 Waldron Score Blood Edema Fundus Height Fundus Units Glucose Ketones Leukocytes Nitrite Labor Signs Protein Cervic Dilation Cervic Effacement Cervic Station Type Weight in lbs Pre/Post Dialysis Refused BP Diastolic BP Location Tested BP Systolic BP Type Fetus Heart Rate Present Fetus Movement Comments Flowsheet Date 08/26/2025 Waldron Score Blood Edema Fundus Height Fundus Units Glucose Ketones Leukocytes Nitrite Labor Signs Protein Cervic Dilation Cervic Effacement Cervic Station Type Weight in lbs Pre/Post Dialysis Refused BP Diastolic BP Location Tested BP Systolic BP Type Fetus Heart Rate Present Fetus Movement Comments Flowsheet Date 08/26/2025 Waldron Score Blood Edema Fundus Height Fundus Units Glucose Ketones Leukocytes Nitrite Labor Signs Protein Cervic Dilation Cervic Effacement Cervic Station Type Weight in lbs Pre/Post Dialysis Refused BP Diastolic BP Location Tested BP Systolic BP Type Fetus Heart Rate Present Fetus Movement Comments Flowsheet Date 08/26/2025 Waldron Score Blood Edema Fundus Height Fundus Units Glucose Ketones Leukocytes Nitrite Labor Signs Protein Cervic Dilation Cervic Effacement Cervic Station Type Weight in lbs Pre/Post Dialysis Refused Weight 377.970023512371 BP Diastolic BP Location Tested BP Systolic BP Type 83 L arm 137 sitting Fetus Heart Rate Present Fetus Movement A Yes Comments doing well, +FM vertex! bpp 08/26, rsv vaccine this evening, education and precautions f/u one week Flowsheet Date 08/31/2025 Waldron Score Blood Edema Fundus Height Fundus Units Glucose Ketones Leukocytes Nitrite Labor Signs Protein Cervic Dilation Cervic Effacement Cervic Station Type Weight in lbs Pre/Post Dialysis Refused BP Diastolic BP Location Tested BP Systolic BP Type Fetus Heart Rate Present Fetus Movement Comments Flowsheet Date 08/31/2025 Waldron Score Blood Edema Fundus Height Fundus Units Glucose Ketones Leukocytes Nitrite Labor Signs Protein Cervic Dilation Cervic Effacement Cervic Station Type Weight in lbs Pre/Post Dialysis Refused Weight 383.697831446761 BP Diastolic BP Location Tested BP Systolic BP Type 95 L wrist 161 sitting 95 R wrist 167 sitting Fetus Heart Rate Present Fetus Movement A Yes Comments denies sxs, to ld for labs a nd monitoring dr ryan notified Menstrual History Last Menstrual Date Menses Monthly On Bcp Conception Prior Menses Frequency Hcg Plus Date Menarche Onset Age 0201/02/2025 Delivery Information Delivery Date Delivery Type Labor Anesthesia Weeks Gestation Incision Type Labor Labor Length Hrs Delivered By Post Complications Tubal Sterilization Discharge Date Comments Discharge Information Feeding Method Contraceptive Method Maternal HG B and HCT Levels
--- OUTSIDE RECORDS SUMMARY | 2025-08-31 17:52 | XMS_ITS | Continuity of Care Document ---
Author Organization [facility] Address [address] [place] [address] Assessment Encounter Date Assessment Date Assessment LastModified by Organization Details LastModified Time 08/31/2025 08/31/2025 Patient is _34__weeks . Discussed [...] available OB ROUTINE 2024 03:30P M JEANETH SHARMA MD Not available Not available Not available U/S OB BPP 2024 09:00A M ULTRASOUND Not available Not available Not available NST 2024 09:30A M NST SCHEDULE Not available Not available Not available OB ROUTINE 2024 10:00A M JEANETH SHARMA MD Not available Not available Not available U/S OB BPP 2024 09:30A M ULTRASOUND Not available Not available Not available NST 2024 10:00A M NST SCHEDULE Not available Not available Not available OB ROUTINE 2024 10:45A M JEANETH SHARMA MD Not available Not available Not available Lab None recorde d. Referral None recorde d. Procedures None recorde d. Surgeries None recorde d. Imaging None recorde d. Medication Orders None recorde d. Patient TargetsNo targets recorded. Patient InstructionsNo instructions recorded. Reason for Referral None Reported. Results Created Date Observation Date Name Description Value Unit Range Abnormal Flag Note LastModifiedBy Organization Detail LastModifiedTime 04/11/2004/11/2025 [UNIT Y] ANEUP LOIDY NIPT fraction 3.0% normal Not Available [facility] [address], [place], [address], 04/11/2025 16:27:09 04/11/20 25 04/11/2025 [UNIT Y] ANEUP LOIDY NIPT 22Q11.2 microdeletio n LOW RISK <1 in 10,000 normal Not Available [facility] [address], [place], [address], 04/11/2025 16:27:09 04/11/20 25 04/11/2025 [UNIT Y] ANEUP LOIDY NIPT sex chromosome aneuploidy NOT DETECT ED normal Not Available [facility] [address], [place], [address], 04/11/2025 16:27:09 04/11/20 25 04/11/2025 [UNIT Y] ANEUP LOIDY NIPT monosomy X LOW RISK <1 in 10,000 normal Not Available [facility] [address], [place], [address], 04/11/2025 16:27:09 04/11/20 25 04/11/2025 [UNIT Y] ANEUP LOIDY NIPT trisomy 13 LOW RISK <1 in 10,000 normal Not Available [facility] [address], [place], [address], 04/11/2025 16:27:09 04/11/20 25 04/11/2025 [UNIT Y] ANEUP LOIDY NIPT trisomy 18 LOW RISK <1 in 10,000 normal Not Available [facility] [address], [place], [address], 04/11/2025 16:27:09 04/11/20 25 04/11/2025 [UNIT Y] ANEUP LOIDY NIPT trisomy 21 LOW RISK <1 in 10,000 normal Not Available [facility] [address], [place], [address], 04/11/2025 16:27:09 04/11/20 25 04/11/2025 [UNIT Y] ANEUP LOIDY NIPT sex MALE normal Not Available [facility] [address], [place], [address], 04/11/2025 16:27:09 04/11/20 25 04/11/2025 [UNIT Y] ANEUP LOIDY NIPT gestation SINGLE TON normal Not Available [facility] [address], [place], [address], 04/11/2025 16:27:09 04/11/20 25 04/11/2025 [UNIT Y] ANEUP LOIDY NIPT for detailed report, see pdf See PDF normal Not Available [facility] [address], [place], [address], 04/11/2025 16:27:09 04/15/20 25 04/15/2025 [UNIT Y] LESLIE BERNICE Hinds sickle cell disease/beta -thalassemia /hemoglobino pathies carrier screen NEGATI VE normal Not Available [facility] [address], [place], [address], 04/15/2025 02:01:13 04/15/20 25 04/15/2025 [UNIT Y] LESLIE BERNICE Hinds alpha-thalas semia carrier screen NEGATI VE normal Not Available [facility] [address], [place], [address], 04/15/2025 02:01:13 04/15/20 25 04/15/2025 [UNIT Y] LESLIE BERNICE Hinds cystic fibrosis carrier screen NEGATI VE normal Not Available [facility] [address], [place], [address], 04/15/2025 02:01:13 04/15/20 25 04/15/2025 [UNIT Y] LESLIE BERNICE WALLYDiana Hinds spinal muscular atrophy carrier screen NEGATI VE 2 SMN1 copies , SNP not presen t normal Not Available [facility] [address], [place], [address], 04/15/2025 02:01:13 04/15/20 25 04/15/2025 [UNIT Y] LESLIE BERNICE Hinds for detailed report, see pdf See PDF normal Not Available [facility] [address], [place], [address], 04/15/2025 02:01:13 04/05/20 25 04/05/2025 IMAGE GUIDE D PAP AND HPV REGAR DLESS image guided Pap, HPV regardless of Pap result SEE RESULT S BELOW abnormal CASE REPOR T: Cytol ogy Gynec ologi ian Repor t Case: [id number] Autho rizin g Provi roxi: Sondra Mello NP Colle cted: 04/05 0943 Order ing Locat ion: [place] Path[facility] Recei dominic: 04/06 1002 First Scree n: Clarice Tillman ay, CT Rescr een: Lee ernandez, Tian ndra Speci men: Dimitrios damon Pap - Image d, Cervi x STATE MENT OF ADEQU ACY: Satis facto ry for evalu ation Trans forma tion zone compo nent absen t. The absen ce of an endoc ervic al compo nent was confi rmed by an addit ional dimitrios ner. ----- ----- ----- ----- ----- ----- ----- ----- ----- ----- ----- ----- ----- ----- ----- ----- ----- ---- FINAL DIAGN OSIS: Negat mushtaq for Intra epith elial Lesmary n or Rhett allison (NIL) . Elect marilyn mariscal d by Tian Aguero on 2024 at 1253 CDT ----- ----- ----- ----- ----- ----- ----- ----- ----- ----- ----- ----- ----- ----- ----- ----- ----- ---- HPV RESUL TS: HPV mRNA E6/E7 : Posit mushtaq - HPV mRNA Detec myriam HPV GENOT YPE 16 (LEO) : Not Detec myriam HPV GENOT YPE 18/45 (LEO) : Not Detec myriam NOTE: This high risk HPV mRNA assay detec ts fourt een high- risk HPV types (16, 18, 31, 33, 35, 39, 45, 51, 52, 56, 58, 59, 66, 68) witho ut diffe renti ation . This assay can diffe renti ate HPV 16 from HPV 18/45 , but does not diffe renti ate betwe en HPV 18 and HPV 45. A negat mushtaq HPV 16, 18/45 genot ype assay resul t does not exclu de the possi bilit y of cytol ogic abnor malit ies or of futur e or under lying OSKAR 1, OSKAR 3 or cance r. COMME NT: This speci men was revie wed by a Cytot echno logis t and/o r Patho logis t (as indic ated in this repor t) after evalu ation using the Thinp rep Imagi ng Syste m. CLINI IAN INFOR MATIO N: Menst rual Statu s: LMP (if appli cable ): Clini ian Histo ry/Pr eviou s Pap: Type of Neopl armen (if appli cable ): Signi fican t Clini ian Findi ngs: Other Histo ry: Hormo karen (if appli cable ): PAP EDUCA OLIVIA L NOTE: The Pap Test is a scree nelson test with an inher ent false negat mushtaq rate. Liqui d-bas ed sampl ing may decre ase, but will not elimi annmarie, false negat mushtaq resul ts. A negat mushtaq resul t does not precl ude the prese nce and/o r devel opmen t of disea se, since the prese nce of abnor mal cells in the sampl e depen ds on the locat ion of the lesio n and sampl ing techn ique. Nichole nued regul ar scree nelson is the best metho d of cance r preve ntion . If repor myriam cytol ogic findi ng do not corre late with physi ian and/o r histo rical findi ngs, furth er inves tigat ion is recom haley d, as clini lucas dong nted. Not Available [facility] (Lab) [address], [place], [address], 04/08/2025 13:56:12 04/29/2004/29/2025 CMP/C BC/UR IC ACID WBC 11.1 10'3/ uL 3.5-10 .5 high Not Available [facility] (Lab) [address] [facility], [place], [address], 04/30/2025 08:57:47 04/29/20 25 04/29/2025 CMP/C BC/UR IC ACID RBC 4.41 10'6/ uL (based on docume nted legal sex) 3.80-5 .20 Not Available [facility] (Lab) [address] , [place], [address], 04/30/2025 08:57:47 04/29/20 25 04/29/2025 CMP/C BC/UR IC ACID HGB 10.9 g/dL (based on docume nted legal sex) 11.6-1 5.4 low Not Available [facility] (Lab) [address], [place], [address], 04/30/2025 08:57:47 04/29/20 25 04/29/2025 CMP/C BC/UR IC ACID HCT 35.5 % (based on docume nted legal sex) 34.0-4 5.0 Not Available [facility] (Lab) [address] [facility], [place], [address], 04/30/2025 08:57:47 04/29/2004/29/2025 CMP/C BC/UR IC ACID MCV 80.5 fL 80.0-9 9.0 Not Available [facility] (Lab) [address], [place], [address], 04/30/2025 08:57:47 04/29/20 25 04/29/2025 CMP/C BC/UR IC ACID MCH 24.7 pg 27.0-3 4.0 low Not Available [facility] (Lab) [address], [place], [address], 04/30/2025 08:57:47 04/29/20 25 04/29/2025 CMP/C BC/UR IC ACID MCHC 30.7 g/dL 32.0-3 5.5 low Not Available [facility] (Lab) [address] [place], [address], 04/30/2025 08:57:47 04/29/20 25 04/29/2025 CMP/C BC/UR IC ACID RDW 20.6 % 11.0-1 5.0 high Not Available [facility] (Lab) [address] [place], [address], 04/30/2025 08:57:47 04/29/20 25 04/29/2025 CMP/C BC/UR IC ACID plt 284 10'3/ uL 150-40 0 Not Available [facility] (Lab) [address] [place], [address], 04/30/2025 08:57:47 04/29/20 25 04/29/2025 CMP/C BC/UR IC ACID MPV 11.0 fL 8.8-12 .1 Not Available [facility] (Lab) [address] [facility], [place], [address], 04/30/2025 08:57:47 04/29/20 25 04/29/2025 CMP/C BC/UR IC ACID NRBC's 0.0 % 0.0 Not Available [facility] (Lab) [address] [facility], [place], [address], 04/30/2025 08:57:47 04/29/20 25 04/29/2025 CMP/C BC/UR IC ACID absolute NRBCs 0.0 10'3/ uL no refere nce range establ ished Not Available [facility] (Lab) [address] [facility] [address], [place], [address], 04/30/2025 08:57:47 04/29/20 25 04/29/2025 CMP/C BC/UR IC ACID neutrophils 80.9 % 34.0-7 3.0 high Not Available [facility] (Lab) [address] [facility] [address] [facility], [place], [address], 04/30/2025 08:57:47 04/29/20 25 04/29/2025 CMP/C BC/UR IC ACID lymphocytes 13.9 % 15.0-5 0.0 low Not Available [facility] (Lab) [address] [place], [address], 04/30/2025 08:57:47 04/29/20 25 04/29/2025 CMP/C BC/UR IC ACID monocytes 4.1 % 1.0-15 .0 Not Available [facility] (Lab) [address] [place], [address], 04/30/2025 08:57:47 04/29/20 25 04/29/2025 CMP/C BC/UR IC ACID eosinophils 0.6 % 0.0-8. 0 Not Available [facility] (Lab) [address] [place], [address], 04/30/2025 08:57:47 04/29/20 25 04/29/2025 CMP/C BC/UR IC ACID basophils 0.2 % 0.0-2. 0 Not Available [facility] (Lab) [address] [facility], [place], [address], 04/30/2025 08:57:47 04/29/20 25 04/29/2025 CMP/C BC/UR IC ACID immature granulocytes 0.3 % no define d refere nce range Immat ure Granu locyt es (IG) repre sents autom ated enume ratio n of Metam yeloc ytes, Myelo cytes and Promy elocy asha when IG is < 5%. Blast s are not inclu ded in IG and repor myriam separ ately if prese nt. Not Available [facility] (Lab) [address], [place], [address], 04/30/2025 08:57:47 04/29/20 25 04/29/2025 CMP/C BC/UR IC ACID absolute neutrophils 8.9 10'3/ uL 1.5-8. 0 high Not Available [facility] (Lab) [address] [facility], [place], [address], 04/30/2025 08:57:47 04/29/20 25 04/29/2025 CMP/C BC/UR IC ACID absolute lymphocytes 1.5 10'3/ uL 1.0-4. 0 Not Available [facility] (Lab) [address] [facility], [place], [address], 04/30/2025 08:57:47 04/29/20 25 04/29/2025 CMP/C BC/UR IC ACID absolute monocytes 0.5 10'3/ uL 0.2-1. 0 Not Available [facility] (Lab) [address] [facility] [address] [facility], [place], [address], 04/30/2025 08:57:47 04/29/20 25 04/29/2025 CMP/C BC/UR IC ACID absolute eosinophils 0.1 10'3/ uL 0.0-0. 6 Not Available [facility] (Lab) [address], [place], [address], 04/30/2025 08:57:47 04/29/2004/29/2025 CMP/C BC/UR IC ACID absolute basophils 0.0 10'3/ uL 0.0-0. 3 Not Available [facility] (Lab) [address], [place], [address], 04/30/2025 08:57:47 04/29/2004/29/2025 CMP/C BC/UR IC ACID absolute immature granulocytes 0.0 10'3/ uL 0.00-0 .10 Refer ence range s for nonbi nary/ inter sex or unspe cifie d gende r patie nts have not been estab lishe d. Pleas e [facility] table for range s estab lishe d for cisge nder patie nts and evalu ate in the clini ian mio xt of the indiv idual patie nt: https ://per steve book. nm.or g/gen derx Not Available [facility] (Lab) [address], [place], [address], 04/30/2025 08:57:47 04/29/2004/29/2025 CMP/C BC/UR IC ACID uric acid 3.1 mg/dL 2.3-6. 6 Not Available [facility] (Lab) [address] [place], [address], 04/30/2025 08:57:47 04/29/2004/29/2025 CMP/C BC/UR IC ACID sodium 136 mmol/ L 133-14 6 Not Available [facility] (Lab) [address] [place], [address], 04/30/2025 08:57:47 04/29/2004/29/2025 CMP/C BC/UR IC ACID potassium 4.2 mmol/ L 3.5-5. 1 Not Available [facility] (Lab) [address] [place], [address], 04/30/2025 08:57:47 04/29/20 25 04/29/2025 CMP/C BC/UR IC ACID chloride 103 mmol/ L 98-107 Not Available [facility] (Lab) [address] [facility], [place], [address], 04/30/2025 08:57:47 04/29/20 25 04/29/2025 CMP/C BC/UR IC ACID carbon dioxide 25 mmol/ L 21-31 Not Available [facility] (Lab) [address] [facility], [place], [address], 04/30/2025 08:57:47 04/29/20 25 04/29/2025 CMP/C BC/UR IC ACID anion gap 8 mmol/ L 4-13 Not Available [facility] (Lab) [address] [facility], [place], [address], 04/30/2025 08:57:47 04/29/20 25 04/29/2025 CMP/C BC/UR IC ACID blood urea nitrogen 9 mg/dL 7-25 Not Available [facility] (Lab) [address], [place], [address], 04/30/2025 08:57:47 04/29/20 25 04/29/2025 CMP/C BC/UR IC ACID creatinine 0.58 mg/dL 0.60-1 .30 low Not Available [facility] (Lab) [address] [place], [address], 04/30/2025 08:57:47 04/29/20 25 04/29/2025 CMP/C BC/UR IC ACID egfrcr (CKD-epi 2020) >90 mL/mi n/1.7 3_m2 >=60 Not Available [facility] (Lab) [address] [place], [address], 04/30/2025 08:57:47 04/29/20 25 04/29/2025 CMP/C BC/UR IC ACID calcium 9.7 mg/dL 8.3-10 .5 Not Available [facility] (Lab) [address] [facility], [place], [address], 04/30/2025 08:57:47 04/29/20 25 04/29/2025 CMP/C BC/UR IC ACID glucose 79 mg/dL 70-100 Not Available [facility] (Lab) [address] [facility], [place], [address], 04/30/2025 08:57:47 04/29/20 25 04/29/2025 CMP/C BC/UR IC ACID protein, total 6.5 g/dL 6.4-8. 3 Not Available [facility] (Lab) [address] [facility], [place], [address], 04/30/2025 08:57:47 04/29/20 25 04/29/2025 CMP/C BC/UR IC ACID albumin 3.8 g/dL 3.5-5. 0 Not Available [facility] (Lab) [address] [place], [address], 04/30/2025 08:57:47 04/29/20 25 04/29/2025 CMP/C BC/UR IC ACID ALT 32 units /L 9-43 Not Available [facility] (Lab) [address] [facility], [place], [address], 04/30/2025 08:57:47 04/29/20 25 04/29/2025 CMP/C BC/UR IC ACID alkaline phosphatase 90 units /L 34-104 Not Available [facility] (Lab) [address] [place], [address], 04/30/2025 08:57:47 04/29/20 25 04/29/2025 CMP/C BC/UR IC ACID AST 20 units /L 13-39 Not Available [facility] (Lab) [address] [place], [address], 04/30/2025 08:57:47 0604/29/2025 CMP/C BC/UR IC ACID bilirubin, total 0.5 mg/dL 0.2-1. 2 Not Available [facility] (Lab) [address] [facility], [place], [address], 04/30/2025 08:57:47 04/29/20 25 04/29/2025 PROTE IN/CR EATIN INE RATIO , URINE creatinine, urine 67.1 mg/dL R-No refer ence range estab lishe d for this assay Not Available [facility] (Lab) [address] [facility], [place], [address], 04/30/2025 08:57:48 04/29/2004/29/2025 PROTE IN/CR EATIN INE RATIO , URINE protein, urine 4 mg/dL R-No refer ence range estab lishe d for this assay Not Available [facility] (Lab) [address] [facility] [address] [facility], [place], [address], 04/30/2025 08:57:48 04/29/20 25 04/29/2025 PROTE IN/CR EATIN INE RATIO , URINE protein/crea tinine ratio, urine 0.06 . No Refer ence Range avail able for Rando m Urine s. A prote in to creat inine ratio of >=0.1 9 is a good predi ctor of signi fican t prote inuri a. A level of <0.14 can rule out signi fican t prote inuri a. Not Available [facility] (Lab) [address] [facility], [place], [address], 04/30/2025 08:57:48 06/24/20 25 06/24/2025 CT/GC AND TRICH OMONA S VAGIN DENY (RRNA ), URINE chlamydia trachomatis, PCR Negati ve negati ve Not Available [facility] (Lab) [address] [place], [address], 06/25/2025 13:19:00 06/24/20 25 06/24/2025 CT/GC AND TRICH OMONA S VAGIN DENY (RRNA ), URINE neisseria gonorrhoeae, PCR Negati ve negati ve Not Available [facility] (Lab) [address], [place], [address], 06/25/2025 13:19:00 06/24/20 25 06/24/2025 CT/GC AND TRICH OMONA S VAGIN DENY (RRNA ), URINE trichomonas vaginalis ribosomal RNA (rrna) Negati ve negati ve Not Available [facility] (Lab) [address], [place], [address], 06/25/2025 13:19:00 06/24/20 25 06/24/2025 drug scree n, urine Amphetamines : negati ve Not Available [facility] [address], [place], [address], 06/24/2025 11:48:04 06/24/20 25 06/24/2025 drug scree n, urine Cannabinoids : negati ve Not Available [facility] [address], [place], [address], 06/24/2025 11:48:04 06/24/20 25 06/24/2025 drug scree n, urine Cocaine: negati ve Not Available [facility] [address], [place], [address], 06/24/2025 11:48:04 06/24/20 25 06/24/2025 drug scree n, urine Opiates: negati ve Not Available [facility] [address], [place], [address], 06/24/2025 11:48:04 06/24/20 25 06/24/2025 drug scree n, urine Phenocyclidi ne: negati ve Not Available [facility] [address], [place], [address], 06/24/2025 11:48:04 06/24/20 25 06/24/2025 drug scree n, urine Barbiturates : negati ve Not Available [facility] [address], [place], [address], 06/24/2025 11:48:04 06/24/20 25 06/24/2025 drug scree n, urine Benzodiazepi karen: negati ve Not Available [facility] [address], [place], [address], 06/24/2025 11:48:04 06/24/20 25 06/24/2025 drug scree n, urine Ethanol: negati ve Not Available [facility] [address], [place], [address], 06/24/2025 11:48:04 06/24/20 25 06/24/2025 drug scree n, urine Hallucinogen s: negati ve Not Available [facility] [address], [place], [address], 06/24/2025 11:48:04 06/24/20 25 06/24/2025 drug scree n, urine Inhalants: negati ve Not Available [facility] [address], [place], [address], 06/24/2025 11:48:04 06/24/20 25 06/24/2025 drug scree n, urine Anabolic Steroids: negati ve Not Available [facility] [address], [place], [address], 06/24/2025 11:48:04 06/24/20 25 06/24/2025 drug scree n, urine Other: negati ve Not Available [facility] [address], [place], [address], 06/24/2025 11:48:04 07/22/20 25 07/22/2025 HEMAT OCRIT (HCT) HCT 36.0 % (based on docume nted legal sex) 34.0-4 5.0 Not Available [facility] (Lab) [address] [facility] [address] [facility], [place], [address], 07/23/2025 13:00:44 07/22/2007/22/2025 HEMOG LOBIN (HGB) HGB 11.7 g/dL (based on docume nted legal sex) 11.6-1 5.4 Not Available [facility] (Lab) [address] [facility] [address], [place], [address], 07/23/2025 13:00:44 07/22/20 25 07/22/2025 GTT - GESTA OLIVIA L DIMITRIOS Hinds, ACOG OB glucose, 1 hour screen 114 mg/dL 70-135 Not Available [facility] (Lab) [address] [facility] [address], [place], [address], 07/23/2025 13:00:45 07/22/2007/22/2025 HIV 1/2 ANTIG EN/AN TIBOD Y, REFLE X CONFI RMATI ON HIV antigen/anti body Nonrea ctive nonrea ctive HIV-1 antig en and HIV-1 /HIV- 2 antib odies were not detec myriam. No labor atory evide nce of HIV infec tion. Not Available [facility] (Lab) [address], [place], [address], 07/23/2025 13:00:45 07/22/2007/22/2025 RPR SCREE N, REFLE X TITER /CONF IRMAT ION RPR qualitative Nonrea ctive nonrea ctive Not Available [facility] (Lab) [address], [place], [address], 07/23/2025 13:00:45 05/24/2005/25/2025 US, obste tric, 2nd or 3rd trime ster No observ ation record ed. [email or web address] [facility] [address], [place], [address], 05/25/2025 13:18:44 05/24/20 25 05/24/2025 US, obste tric, 2nd or 3rd trime ster No observ ation record ed. [email or web address] [facility] [address], [place], [address], 05/26/2025 14:07:15 06/24/20 25 06/24/2025 US, obste tric, follo w-up No observ ation record ed. [email or web address] [facility] [address], [place], [address], 06/24/2025 13:11:51 06/24/20 25 06/24/2025 US, obste tric, follo w-up No observ ation record ed. [email or web address] [facility] [address], [place], [address], 06/24/2025 17:27:35 08/16/20 25 08/16/2025 US, obste tric, follo w-up No observ ation record ed. [email or web address] [facility] [address], [place], [address], 08/16/2025 16:46:22 08/16/20 25 08/16/2025 US, obste tric, bioph ysica l profi le + non-s tress test No observ ation record ed. [email or web address] [facility] [address], [place], [address], 08/16/2025 16:46:32 08/16/20 25 08/16/2025 US, obste tric, follo w-up No observ ation record ed. [email or web address] [facility] [address], [place], [address], 08/16/2025 17:03:25 08/16/20 25 08/16/2025 non-s tress test No observ ation record ed. [email or web address] [facility] [address], [place], [address], 08/19/2025 17:43:10 08/16/20 non-s tress test No observ ation record ed. [email or web address] [facility] [address], [place], [address], 08/19/2025 17:43:11 08/26/2008/26/2025 US, obste tric, follo w-up No observ ation record ed. [email or web address] [facility] [address], [place], [address], 08/26/2025 12:11:40 08/26/2008/26/2025 US, obste tric, bioph ysica l profi le + non-s tress test No observ ation record ed. [email or web address] [facility] [address], [place], [address], 08/26/2025 13:01:12 08/26/2008/26/2025 non-s tress test No observ ation record ed. [email or web address] [facility] [address], [place], [address], 08/26/2025 10:41:31 Result Notes None recorded. Problems Name Problem SNOMED Code Status Onset Date Resolution Date Notes Provider Name and Address Organization Details Recorded Time Past history of gestation al hypertens ion 592218720 Active 2024 Sondra Jesus CNM [address], [place], [address], [facility] 09:42:17 84133571 Active 2024 Caprice clarke, [facility] 09:30:00 Obesity 324059570 Active 2024 testing 162 mg bASA Sondra Jesus CNM [address], [place], [address], [facility] 5 09:41:59 Past history of gestation al hypertens ion 573514803 Active 2024 Sondra Jesus CNM [address], [place], [address], [facility] 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 5 12:15:27 Anemia 626615680 Active 2024 Hgb 10.9 at new OB labs JEANETH SHARMA MD [address], [place], [address], [facility] 5 12:17:50 History of abnormal cervical Papanicol aou smear 578627215 Active 202404/05/2025 neg pap HPV high risk Caprice Rojas null, [facility] 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 5 12:17:38 Problem Notes None recorded. Procedures Surgical History Date Name Laterality Status Provider Name and Address Organization Details Recorded Time 04/05/20 25 Date of Last Pap Smear completed Caprice Rojas [facility] 04/05/2025 10:02:32 06/14/20 24 hysteroscopic excision of polyp of uterus completed JEANETH SHARMA MD 2016 Doris Thibodeaux, [place], [address], [facility] 08/04/2024 15:15:19 11/17/19 08 Tonsillectomy completed Deisychristine Siegel [facility] 05/04/2024 15:03:38 Imaging Results None recorded. [...] Updated DateTime 08/31/2025 177.8 cm 55 kg/m2 368543.8 8 g 161/95 mm[Hg] 167/95 mm[Hg] Drea Melo [facility] 17:26:20 Social History Question Answer Notes LastModified by ExactTargetizat ion Details LastModified Time Tobacco Smoking Status Never Smoker Deisy Tar[place] tricia, [facility] 05/04/2024 15:03:15 Do You Have An Advance Directive? No Information n ot available 03/07/2025 If You Are , What Was Your Level Of Alcohol Consumption Prior To ? Occasional [email or web address] Information not available 04/05/2025 Are You Blind Or Do You Have Difficulty Seeing? No Information n ot available 05/04/2024 What Is Your Level Of Caffeine Consumption? Moderate Information not available 05/04/2024 How Much Tobacco Do You Chew? None [email or web address] Information not available 04/05/2025 In The 14 [...] Or The Highest Degree You Have Received? [id number] Information not available 03/07/2025 Are There Any [...] Have Difficulty Walking Or Climbing Stairs? No [email or web address] Information not available 04/05/2025 Sex: Unknown Functional Status Question Answer Note LastModified by Organizat ion Details LastModified Time Do you use any illicit or recreational drugs? No Information not available 05/04/2024 What is your level of alcohol consumption? None Information not available 04/05/2025 Are you able to walk independently without assistance or assistive devices? YESWOREST Information not available 05/04/2024 Are you able to care for yourself independently? 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 No [email or web address] Information not available 04/05/2025 What is your exercise level? Occasional Information not available 05/04/2024 Mental Status Question Answer Note LastModified by Organization D etails LastModified Time Do you feel stressed (tense, restless, nervous, or anxious, or unable to sleep at night)? [id number] Information not available 03/07/2025 Family History Relationship Description Onset Age of this Age Resolved Age Notes LastModified by Organization Details LastModified Time Unspecified Relation Family history unknown [email or web address] Not available 2023 15:00:07 Medical History Condition [...] ICD10 Code Diagnosis IMO Codes Diagnosis Note [id number] JEANETH SHARMA MD [facility] [address],[place] [address] 08/05/2025 10:12:26 08/05/2025 10:48:56 Hypertensive disorder 82865136 I10 61233267 - labetalol 200mg BID- baseline labs wnl- BP normotensi ve at home, office cuff c/w home cuff, likely white coat HTN- monitor closely- continue ASA 162mg Past pregn keren history of gestational hypertension 576666430 Z87.59 [id number] Obesity 446291256 E66.9 [id number] - ASA 162mg- testing at 34 weeks Gestation period, 30 weeks 55598485 Z3A.30 3879293 [id number] JEANETH SHARMA MD [facility] [address],[place] [address] 08/16/2025 15:44:36 08/16/2025 17:20:32 Maternal obesity complicating , childbirth and the puerperium, antepartum 4609371446 07 O99.210 9779191815 - ASA 162mg- testing at 34 weeks [id number] JEANETH SHARMA MD [facility] [address],[place] [address] 08/16/2025 15:45:12 08/19/2025 08:57:52 Hypertensive disorder 61027610 I10 14506832 - labetalol 200mg BID- baseline labs wnl- BP normotensi ve at home, office cuff c/w home cuff, likely addition of white coat HTN on top of chronic HTN- monitor closely- continue ASA 162mg Obesity 796953708 E66.9 6247642320 - ASA 162mg- testing at 32 weeks Anemia 255585685 D64.9 97458249 - resolved Gestation period, 32 weeks 7019705 Z3A.32 8341038 - continue PNV [id number] JEANETH SHARMA MD [facility] [address],[place] [address] 08/16/2025 15:46:36 08/16/2025 16:39:28 Obesity 178236181 O99.213 O16.3 Z3A.32 55308424 - ASA 162mg- testing at 34 weeks [id number] Corwin Pandey MD [facility] [address],[place] [address] 08/26/2025 09:20:17 08/26/2025 10:02:50 Chronic hypertension complicating AND/OR reason for care during 28886858 O10.913 O99.210 Z3A.33 53220013 [id number] [facility] [address],[place] [address] 08/26/2025 09:21:07 08/26/2025 10:47:09 Body mass index 40+ - severely obese 102075568 Z68.43 929961 [id number] Sondra Jesus CNM [facility] [address],[place] [address] 08/26/2025 09:21:23 08/26/2025 10:53:58 Gestation period, 33 weeks 70936775 Z3A.33 1688854 [id number] Sondra Jesus CNM [facility] [address] [address] 08/31/2025 16:48:37 08/31/2025 17:45:37 Gestation period, 34 weeks 58702197 Z3A.34 [id number] Health Concerns Section Related Observation LastModified by Organization Detai ls LastModified Time None Recorded Concern Status LastModified by Organization Details LastModified Time None Recorded Payers Encounter Date Sequence Insurance Name Policy Number Policy Espinoza Covered Member ID Espinoza Member ID Guarantor Name 08/31/2025 1 SANGITA [id number] Valerie Dias [id number] Valerie Dias Notes Date Note Type Note Provider Name and Address Organization Details Recorded Time 08/31/2025 text/html Generic HPI TemplateReported by Patient [address], [place], [address], [facility] 08/31/2025 17:38:57 OBGyn Episode Ob Episode Information Episode Created Date Number of Fetuses Patient Bloodtype Patient rh Status Prepregnancy Weight lbs Domestic Partner Domestic Partner Phone Father Name Yeast Pumper Status 04/05/20 25 1 A Positive 366 Alvarado Rodgers OPEN Fetus Data First Name Last Name Admitted to NICU Weight (g) Sex Living Outcome Pediatric Complications Fetus ID Race Codes Race Delivery Type [id number] Problems Problem Notes Problem Name Start Date End Date Resolution Snomed Code Not e Anemia 04/07/2025 226424463 Hgb 10.9 at new OB labs Hypertensive disorder 04/05/2025 1414404 3 labetalol 200mg bid , BP BID at home bASA x2 daily- home cuff c/w office cuff, white coat HTN, normal at home- baseline labs wnl Human papillomavirus deoxyribonucleic acid detected, high risk on cervical specimen 04/12/2025 686704481 NILM, +HPV ; repeat in 1 year Obesity 04/05/2025 440898190 testing 162 mg bASA Past history of gestational hypertension 04/05/2025 [id number] Jos Calculation Initial Jos Date Initial Exam [...] Latest Days Gestation 0 10/09/20 25 0 Pre- Flowsheet Flowsheet Date 04/05/2025 Waldron Score Blood Edema Fundus Height Fundus Units Glucose Ketones Leukocytes Nitrite Labor Signs Protein Cervic Dilation Cervic Effacement Cervic Station neg none Type Weight in lbs Pre/Post Dialysis Refused Weight 365.774772578989 BP Diastolic BP Location Tested BP Systolic BP Type 95 157 Fetus Heart Rate Present Fetus Movement A Yes Comments Patient states that having n ausea and vomiting. reviewed vaginal delivery, hx Gestational HTN, most sabiha SCHAFFERTN, reviewed bps from last visits, plan to get bp cuff, will have rn call to start labetalol 200mg BID, plan testing reviewed US, subchorionic hem, NT and NB wnl, f/u [address] sharma, begin care Flowsheet Date 04/29/2025 Waldron Score Blood Edema Fundus Height Fundus Units Glucose Ketones Leukocytes Nitrite Labor Signs Protein Cervic Dilation Cervic Effacement Cervic Station Type Weight in lbs Pre/Post Dialysis Refused 371.281421234128 BP Diastolic BP Location Tested BP Systolic [...] Weight in lbs Pre/Post Dialysis Refused Weight 370.459575448214 BP Diastolic BP Location Tested BP Systolic [...] Weight in lbs Pre/Post Dialysis Refused Weight 369.778500986170 BP Diastolic BP Location Tested BP Systolic [...] Weight in lbs Pre/Post Dialysis Refused Weight 373.39358638467 BP Diastolic BP Location Tested BP Systolic [...] Weight in lbs Pre/Post Dialysis Refused Weight 374.587001230416 BP Diastolic BP Location Tested BP Systolic [...] Weight in lbs Pre/Post Dialysis Refused Weight 373.779543628173 BP Diastolic BP Location Tested BP Systolic BP Type 93 L arm 142 sitting Fetus Heart Rate Present Fetus Movement Comments Flowsheet Date 08/16/2025 Waldron Score Blood Edema Fundus Height Fundus Units Glucose Ketones Leukocytes Nitrite Labor Signs Protein Cervic Dilation Cervic Effacement Cervic Station Type Weight in lbs Pre/Post Dialysis Refused 373.257953617743 BP Diastolic BP Location Tested BP Systolic BP Type 83 L arm 142 sitting Fetus Heart Rate Present A Present Fetus Movement A Yes Comments Doing well, good movem ent. No cramping or bleeding. BPP 10/10, suspected LGA fetus EFCW 92% with AC [...] Weight in lbs Pre/Post Dialysis Refused Weight 377.995524118950 BP Diastolic BP Location Tested BP Systolic [...] Weight in lbs Pre/Post Dialysis Refused Weight 383.543667144694 BP Diastolic BP Location Tested BP Systolic BP Type 95 L wrist 161 sitting 95 R wrist 167 sitting Fetus Heart Rate Present Fetus Movement A Yes Comments denies sxs, to ld for labs a nd monitoring dr sharma notified Menstrual History Last Menstrual Date Menses [...]
--- NOTE | 2025-08-31 18:28 | PM.IMHP ---
H&P: HPI History of Present Illness Date/Time: 08/31/25 18:28 Chief Complaint: pt s a 35 y.o. G 3 P1 at 34.3 weeks gestation, pt presented to office with severe range blood pressures. denies headache. visual changes, epigastric pain. On admission severe range blood pressures noted, dr. ryan ordered magnesium sulfate. labs were drawn and stable with the exception of an elevated PCR. has been complicated by chronic HTN and has been managed well with labetalol 200mg BID, complicated by obesity with BMI currently 50. history of anemia and is on slow fe. FHR category 1, with no observable contractions Review of Systems Review of Systems: All systems reviewed & are unremarkable except as noted in HPI and below PMFSH Social History Social History Smoking status: Never smoker Alcohol intake: current Lack of Transportation: No Lack of Food: Never True Current Housing: I Have Housing Concerned About Future Housing: No Difficulty Paying Gas/Electric Bills: No Difficulty Paying for Meds: No Currently Unemployed: No Education: Associate Degree Difficulty w/ Childcare or Family Care: No Living arrangements: with family Spiritual care concerns: No Meds Home Medications and Allergies Home Medications ?Medication ?Instructions ?Recorded ?Confirmed ?Type ferrous sulfate, dried 144 mg (45 144 mg PO BID 06/10/24 08/31/25 History mg iron) tablet,extended release (Slow Release Iron) aspirin 81 mg capsule 81 mg PO BID 08/31/25 08/31/25 History labetalol 200 mg tablet mg 08/31/25 History Allergies Allergy/AdvReac Type Severity Reaction Status Date / Time No Known Allergies Allergy Verified 08/31/25 17:29 Vital Signs Vital Signs - 24 hr 08/31/25 17:06 08/31/25 17:16 08/31/25 17:17 Pulse Rate 89 88 Blood Pressure 162/86 H Blood Pressure [Right Arm] 162/86 H Pulse Oximetry 99 08/31/25 17:21 08/31/25 17:26 08/31/25 17:31 Pulse Rate Blood Pressure Blood Pressure [Right Arm] Pulse Oximetry 99 100 100 08/31/25 17:32 08/31/25 17:36 08/31/25 17:41 Pulse Rate 87 Blood Pressure 151/79 H Blood Pressure [Right Arm] Pulse Oximetry 99 100 08/31/25 17:46 08/31/25 17:47 08/31/25 17:51 Pulse Rate 83 Blood Pressure 149/89 H Blood Pressure [Right Arm] Pulse Oximetry 100 100 08/31/25 17:56 08/31/25 18:01 08/31/25 18:03 Pulse Rate 84 Blood Pressure Blood Pressure [Right Arm] 149/89 H Pulse Oximetry 99 100 08/31/25 18:17 Pulse Rate 87 Blood Pressure 150/82 H Blood Pressure [Right Arm] Pulse Oximetry Exam Const: General: cooperative, healthy appearing and comfortable Chest: Chest palpation & inspection: normal inspection of the chest Resp: Effort & Inspection: normal respiratory effort Cardio: Rate: regular rate Rhythm: regular rhythm GI: Other: soft/gravid : Other: deferred Skin: General skin exam: normal color Neuro: General: patient oriented x3 Extrem: General: normal to inspection and full ROM Psych: Appearance: grossly normal H&P: Results Labs Labs: Short CBC 08/31/25 Range/Units 17:20 WBC 10.0 (4.5-10.0) K/mm3 Hgb 11.1 L (12.0-15.0) g/dL Hct 33.6 L (37.0-47.0) % Plt Count 226 (150-375) k/mm3 BMP 08/31/25 17:20 Sodium 134 L Potassium 3.9 Chloride 106 Carbon Dioxide 21 L BUN 8 Creatinine 0.55 L Glucose 123 H Calcium 9.7 Liver Function 08/31/25 Range/Units 17:20 Total Bilirubin 0.7 (0.2-1.3) mg/dL AST 17 (14-36) U/L ALT 19 (6-35) U/L Alkaline Phosphatase 159 H (38-126) U/L Albumin 3.4 L (3.5-5.1) g/dL Urine 08/31/25 Range/Units 17:20 Urine Color Yellow (Yellow) Urine Appearance Clear (Clear) Urine pH 6.5 (5.0-9.0) Ur Specific [place] 1.010 (1.001-1.035) Urine Protein Negative (Negative) mg/dL Urine Glucose (UA) Negative (Negative) mg/dL Assessment and Plan Assessment and plan (1) Pre-eclampsia complicating , with pre-existing hypertension, with delivery, current hospitalisation: Status: Acute Assessment and Plan: plan to transfer to [facility] for higher level of care excepted by dr. wilson (2) Obesity: Code(s): E66.9 - Obesity, unspecified Status: Acute (3) Anemia: Code(s): D64.9 - Anemia, unspecified Status: Acute
--- NOTE | 2025-08-31 18:35 | P.TS_ITS ---
Transfer Discharge Sum: Prov Provider Date of admission: 08/31/25 Primary care physician: UNKNOWN,DOCTOR Admitting clinician: dr. christine jesus [facility] Attending physician on discharge: Christine Ryan Discharging clinician: Sondra Jesus Anticipated date of transfer: 08/31/25 Receiving physician/facility: [facility] dr. wilson DS: Admitting Diagnosis Discharge Date 08/31/25 Admitting Diagnosis preeclampsia with severe features Transfer Discharge Sum: Med Medications Active and Home Medications: Home Medications ferrous sulfate, dried 144 mg (45 mg iron) tablet,extended release (Slow Release Iron) 144 mg PO BID 06/10/24 [History Confirmed 08/31/25] aspirin 81 mg capsule 81 mg PO BID 08/31/25 [History Confirmed 08/31/25] labetalol 200 mg tablet mg 08/31/25 [History] Active Medications Magnesium Sulfate (Magnesium Sulf 20gm/[id number]) 500 mls @ 50 mls/hr IV CONT .Q10H CHARLA Transfer Discharge Sum: Hosp Hospital Course Hospital course: Valerie Dias is a 35 year old female Patient Condition: Stable Time Spent with Patient Time attestation: Total time spent providing and/or coordinating transfer services: DS: Data Data Completed and Pending Labs on day of discharge: Labs from last 24 hours 08/31/25 17:20 WBC 10.0 RBC 3.79 L Hgb 11.1 L Hct 33.6 L MCV 88.7 MCH 29.3 MCHC 33.0 RDW 14.7 H Plt Count 226 MPV 10.3 Immature Gran % (Auto) 0.4 Neut % (Auto) 80.7 H Lymph % (Auto) 13.7 L [place] % (Auto) 4.5 Eos % (Auto) 0.6 Baso % (Auto) 0.1 L Lymph # (Auto) 1.37 [place] # (Auto) 0.5 Eos # (Auto) 0.1 Baso # (Auto) 0.0 Abs Immat Gran (auto) 0.04 H Absolute Neuts (auto) 8.1 H Absolute Nucleated RBC 0.000 Nucleated RBC % 0.0 Sodium 134 L Potassium 3.9 Chloride 106 Carbon Dioxide 21 L Anion Gap 7 BUN 8 Creatinine 0.55 L Estim Creat Clear Calc 210 Estimated GFR > 60 Glucose 123 H Uric Acid 3.1 Calcium 9.7 Total Bilirubin 0.7 AST 17 ALT 19 Alkaline Phosphatase 159 H Total Protein 7.0 Albumin 3.4 L Urine Color Yellow Urine Appearance Clear Urine pH 6.5 Ur Specific [place] 1.010 Urine Protein Negative Urine Glucose (UA) Negative Urine Ketones Negative Ur Blood (Man) Negative Urine Nitrate Negative Urine Bilirubin Negative Urine Urobilinogen 1.0 Leukocyte Esterase Rfl Trace H Urine RBC 3-5 H Urine WBC 0-5 Ur Squamous Epith Cells None seen Urine Bacteria None seen Urine Casts 0-2 U Random Total Protein 20 Urine Creatinine 51.4 Protein/Creat Ratio 2 0.39 H
[2025-08-31] MEDS: LACTATED RINGERS 1,000 ML 75 ML IV CONT (19:04)
[2025-08-31] MEDS: MAGNESIUM SULF 4 GM/WATER100ML 4 GM/100 ML BAG IVPB (19:04)
[2025-08-31] MEDS: BETAMETHASONE SOD PHOS/ACETATE 30 MG/5 ML VIAL 12 MG IM (19:05)
[2025-08-31] MEDS: LABETALOL HCL 100 MG TABLET 200 MG PO (19:18)
[2025-08-31] MEDS: MAGNESIUM SULF 20GM/WATER500ML 500 ML 50 MG IV CONT (19:37)
--- NOTE | 2025-08-31 20:30 | PC.NURSE ---
1800 Kimani Jesus CNM at nurses station, reviews labs, blood pressure, and tracing. Orders received for magnesium 4 gram bolus and 2 gram loading dose. 1804 Kimani Jesus CNM calls [facility] for consult. 1820 Transfer to [facility] accepted. 1901 Kimani Jesus CNM at nurses station, reviews blood pressure. Orders received for labetalol 20 mg IV and labetalol 200 mg PO. 1906 Report given to [facility], NICKY Alejo. 7 Pt up to bathroom, urine output 300 ml. 2009 [facility] transport team arrives. 2029 Pt transported to [facility] via [facility].
== END 2025-08-31 20:30 | disposition short-term general hospital (02) ==
LOC: ANHOBOP 09-02 07:03 → ANHOBPP 09-02 07:03
PROVIDERS: Advanced Practice Midwife; Admitting Provider Obstetrics & Gynecology; Visit Provider Obstetrics & Gynecology
DX: O11.3 Pre-existing hypertension with pre-eclampsia, third trimester (principal); Z3A.34 34 weeks gestation of pregnancy; D64.9 Anemia, unspecified; O99.213 Obesity complicating pregnancy, third trimester; E66.9 Obesity, unspecified; Z79.82 Long term (current) use of aspirin
CPT/HCPCS: 36415; 59025; 80053; 81001; 82570; 84156; 84550; 85025; 96365; 96366; 96372; 96375; 99199; A9270; G0378; G0379; J0702; J3475; J7120

== ENCOUNTER 2025-09-20 00:01 | Inpatient (IN) | payer OTHER, SELFPAY ==
[2025-09-20] VITALS (245 sets, daily range): BP systolic 115–165; BP diastolic 50–96; PULSE 62–113; RESP 18; TEMP 36.4–37.1; O2SAT 89–100; BMI 54.3
--- NOTE | 2025-09-20 00:45 | LDADM ---
This patient, Valerie Dias, was admitted to Labor/Delivery/Recovery 106 on 09/20/25 at 00:01. Plans for labor, pain management and were discussed with patient. Patient/family oriented to hospital policies and general routines including ID bracelet, bed and alarms, visiting hours, pain management, procedures, bathroom and other care routines, personal items, smoking policy, room service/diet and guest tray routines, security routines, and visiting hours. Patient/Family are encouraged to report perceived risks to care and to ask questions if they do not understand what they are told or what they should do. See OBIX for further documentation.
[2025-09-20 00:57] LABS: Alanine Aminotransferase 24 U/L (6-35); Albumin Level 3.5 g/dL (3.5-5.1); Alkaline Phosphatase 163 U/L (38-126); Anion Gap 6 mmol/L (4-12); Aspartate Amino Transferase 22 U/L (14-36); Bilirubin,Total 0.7 mg/dL (0.2-1.3); Blood Urea Nitrogen 13 mg/dL (7-17); Calcium 9.6 mg/dL (8.4-10.2); Carbon Dioxide 21 mmol/L (22-30); Chloride 106 mmol/L (98-107); Estimated CRCL calculation 198 ml/min; Estimated Glomerular Filt Rate > 60; Glucose 98 mg/dL (65-110); Potassium 4.3 mmol/L (3.4-5.0); Sodium 133 mmol/L (137-145); Total Protein 6.9 g/dL (6.3-8.2); Uric Acid 4.0 mg/dL (2.5-7.5)
[2025-09-20 00:59] LABS: Hematocrit 33.9 % (37.0-47.0); Hemoglobin 11.3 g/dL (12.0-15.0); Immature Granulocyte Percent A 1.5 % (0-0.5); Lymphocytes Absolute Auto 1.65 K/mm3 (0.9-3.2); Mean Corpuscular HGB Conc 33.3 g/dl (32-36); Mean Corpuscular Hemoglobin 29.7 pg (26-34); Mean Corpuscular Volume 89.0 fl (80-100); Nucleated Red Blood Cells Absolute Auto 0.000 K/mm3 (0.0-0.012); Nucleated Red Blood Cells Perc 0.0 % (0.0-0.2); Platelet Count Result 236 k/mm3 (150-375); Red Blood Count 3.81 M/mm3 (4.2-5.4); White Blood Count 9.9 K/mm3 (4.5-10.0)
[2025-09-20 01:22] LABS: Syphilis IgG/IgM Antibody Non-Reactive (Nonreactive)
[2025-09-20] MEDS: LACTATED RINGERS 1,000 ML 125 ML IV CONT ×2 (04:50→14:19)
[2025-09-20] MEDS: OXYTOCIN 30 UNITS/NS 500 ML 30 UNITS/500 ML BAG IV CONT (04:50)
[2025-09-20] MEDS: LABETALOL HCL 100 MG TABLET 400 MG PO ×2 (09:04→21:08)
--- NOTE | 2025-09-20 10:33 | WPDANESEPP ---
Anes - Eval Pre Procedure Procedure: labor pain management Date/Time: 09/20/25 10:33 Surgeon: Connor Preop Diagnosis: pain during labor Pre Op Diagnosis: IOL Patient Data Age: 35 Gender: F Height: 1.78 m Weight: 171.78 kg Last Vital Signs Temp 97.9 F 09/20/25 10:12 Pulse 81 09/20/25 10:30 Resp 18 09/20/25 01:01 BP 142/84 H 09/20/25 10:30 Pulse Ox 98 09/20/25 00:49 O2 Del Method Room Air 09/20/25 00:44 Allergies Allergy/AdvReac Type Severity Reaction Status Date / Time No Known Allergies Allergy Verified 09/20/25 00:45 Home Medications ?Medication ?Instructions ?Recorded ?Confirmed ?Type ferrous sulfate, dried 144 mg (45 144 mg PO BID 06/10/24 09/20/25 History mg iron) tablet,extended release (Slow Release Iron) aspirin 81 mg capsule 81 mg PO BID 08/31/25 09/20/25 History labetalol 200 mg tablet 400 mg PO .BID 08/31/25 09/20/25 History vit no.95-ferrous 1 tablet PO DAILY 09/09/25 09/20/25 History fumarate 28 mg-folic acid 800 mcg tablet () Laboratory Tests 09/20/25 09/20/25 09/20/25 00:22 00:22 00:22 WBC 9.9 K/mm3 (4.5-10.0) RBC 3.81 L M/mm3 (4.2-5.4) Hgb 11.3 L g/dL (12.0-15.0) Hct 33.9 L % (37.0-47.0) MCV 89.0 fl (80-100) MCH 29.7 pg (26-34) MCHC 33.3 g/dl (32-36) RDW 14.4 % (11.5-14.5) Plt Count 236 k/mm3 (150-375) MPV 10.7 H fl (7.4-10.4) Immature Gran % (Auto) 1.5 H % (0-0.5) Neut % (Auto) 76.5 H % (45.5-73.1) Lymph % (Auto) 16.7 L % (18.3-44.2) [place] % (Auto) 4.6 % (2.6-8.5) Eos % (Auto) 0.6 % (0-4.4) Baso % (Auto) 0.1 L % (0.2-1.2) Lymph # (Auto) 1.65 K/mm3 (0.9-3.2) [place] # (Auto) 0.5 K/mm3 (0.1-0.6) Eos # (Auto) 0.1 K/mm3 (0-0.3) Baso # (Auto) 0.0 K/mm3 (0.0-0.1) Abs Immat Gran (auto) 0.15 H K/mm3 (0.00-0.031) Absolute Neuts (auto) 7.6 H K/mm3 (1.3-6.7) Absolute Nucleated RBC 0.000 K/mm3 (0.0-0.012) Nucleated RBC % 0.0 % (0.0-0.2) Sodium 133 L mmol/L Cancelled (137-145) Potassium 4.3 mmol/L Cancelled (3.4-5.0) Chloride 106 mmol/L (98-107) Carbon Dioxide Anion Gap BUN Creatinine Estim Creat Clear Calc Estimated GFR Glucose Uric Acid Calcium Total Bilirubin AST ALT Alkaline Phosphatase Total Protein Albumin Syphilis IgG/IgM Ab Blood Type Antibody Screen 09/20/25 09/20/25 09/20/25 00:22 00:22 00:22 WBC RBC Hgb Hct MCV MCH MCHC RDW Plt Count MPV Immature Gran % (Auto) Neut % (Auto) Lymph % (Auto) [place] % (Auto) Eos % (Auto) Baso % (Auto) Lymph # (Auto) [place] # (Auto) Eos # (Auto) Baso # (Auto) Abs Immat Gran (auto) Absolute Neuts (auto) Absolute Nucleated RBC Nucleated RBC % Sodium Potassium Chloride Cancelled Carbon Dioxide 21 L mmol/L Cancelled (22-30) Anion Gap 6 mmol/L Cancelled (4-12) BUN 13 D mg/dL (7-17) Creatinine Estim Creat Clear Calc Estimated GFR Glucose Uric Acid Calcium Total Bilirubin AST ALT Alkaline Phosphatase Total Protein Albumin Syphilis IgG/IgM Ab Blood Type Antibody Screen 09/20/25 09/20/25 09/20/25 00:22 00:22 00:22 WBC RBC Hgb Hct MCV MCH MCHC RDW Plt Count MPV Immature Gran % (Auto) Neut % (Auto) Lymph % (Auto) [place] % (Auto) Eos % (Auto) Baso % (Auto) Lymph # (Auto) [place] # (Auto) Eos # (Auto) Baso # (Auto) Abs Immat Gran (auto) Absolute Neuts (auto) Absolute Nucleated RBC Nucleated RBC % Sodium Potassium Chloride Carbon Dioxide Anion Gap BUN Cancelled Creatinine 0.59 L mg/dL Cancelled (0.7-1.0) Estim Creat Clear Calc 198 ml/min Cancelled Estimated GFR > 60 (59 - ) Glucose Uric Acid Calcium Total Bilirubin AST ALT Alkaline Phosphatase Total Protein Albumin Syphilis IgG/IgM Ab Blood Type Antibody Screen 09/20/25 09/20/25 09/20/25 00:22 00:22 00:22 WBC RBC Hgb Hct MCV MCH MCHC RDW Plt Count MPV Immature Gran % (Auto) Neut % (Auto) Lymph % (Auto) [place] % (Auto) Eos % (Auto) Baso % (Auto) Lymph # (Auto) [place] # (Auto) Eos # (Auto) Baso # (Auto) Abs Immat Gran (auto) Absolute Neuts (auto) Absolute Nucleated RBC Nucleated RBC % Sodium Potassium Chloride Carbon Dioxide Anion Gap BUN Creatinine Estim Creat Clear Calc Estimated GFR Cancelled Glucose 98 mg/dL Cancelled (65-110) Uric Acid 4.0 mg/dL (2.5-7.5) Calcium 9.6 mg/dL Cancelled (8.4-10.2) Total Bilirubin 0.7 mg/dL (0.2-1.3) AST ALT Alkaline Phosphatase Total Protein Albumin Syphilis IgG/IgM Ab Blood Type Antibody Screen 09/20/25 09/20/25 09/20/25 00:22 00:22 00:22 WBC RBC Hgb Hct MCV MCH MCHC RDW Plt Count MPV Immature Gran % (Auto) Neut % (Auto) Lymph % (Auto) [place] % (Auto) Eos % (Auto) Baso % (Auto) Lymph # (Auto) [place] # (Auto) Eos # (Auto) Baso # (Auto) Abs Immat Gran (auto) Absolute Neuts (auto) Absolute Nucleated RBC Nucleated RBC % Sodium Potassium Chloride Carbon Dioxide Anion Gap BUN Creatinine Estim Creat Clear Calc Estimated GFR Glucose Uric Acid Calcium Total Bilirubin Cancelled AST 22 U/L Cancelled (14-36) ALT 24 U/L Cancelled (6-35) Alkaline Phosphatase 163 H U/L (38-126) Total Protein Albumin Syphilis IgG/IgM Ab Blood Type Antibody Screen 09/20/25 09/20/25 09/20/25 00:22 00:22 00:22 WBC RBC Hgb Hct MCV MCH MCHC RDW Plt Count MPV Immature Gran % (Auto) Neut % (Auto) Lymph % (Auto) [place] % (Auto) Eos % (Auto) Baso % (Auto) Lymph # (Auto) [place] # (Auto) Eos # (Auto) Baso # (Auto) Abs Immat Gran (auto) Absolute Neuts (auto) Absolute Nucleated RBC Nucleated RBC % Sodium Potassium Chloride Carbon Dioxide Anion Gap BUN Creatinine Estim Creat Clear Calc Estimated GFR Glucose Uric Acid Calcium Total Bilirubin AST ALT Alkaline Phosphatase Cancelled Total Protein 6.9 g/dL Cancelled (6.3-8.2) Albumin 3.5 g/dL Cancelled (3.5-5.1) Syphilis IgG/IgM Ab Non-reactive (Nonreactive) Blood Type A Positive Antibody Screen Negative Patient hx anesthesia problems: none Family hx anesthesia problems: none Results Review: All pre-operative results and documents have been reviewed as part of the pre-operative evaluation. [facility] Family History Family History (Updated 09/09/25 @ 13:32 by Manisha Nesbitt RN) Other No pertinent family history Social History Social History Smoking status: Never smoker Alcohol intake: current Substance use: never Lack of Transportation: No Lack of Food: Never True Current Housing: I Have Housing Concerned About Future Housing: No Difficulty Paying Gas/Electric Bills: No Difficulty Paying for Meds: No Currently Unemployed: No Education: Associate Degree Difficulty w/ Childcare or Family Care: No Living arrangements: with family Spiritual care concerns: No Exam Day of Procedure 09/20/25 10:33
--- NOTE | 2025-09-20 14:30 | P.HP_ITS ---
H&P: HPI History of Present Illness Date/Time: 09/20/25 08:30 Chief Complaint: chronic HTN with superimposed preeclampsia without severe features Narrative: Patient is a 35 year old at 37 weeks gestation who presents for induction of labor indicated for chronic HTN with superimposed preeclampsia without severe features. She has been overall well controlled on labetalol, however required uptitration by [facility] 2 weeks ago for elevated blood pressures. She has new proteinuria, meeting diagnosis of chronic HTN with superimposed preeclampsia without severe features. She is otherwise asymptomatic. Her pregn keren has been otherwise complicated by obesity. testing has been reactive. Review of Systems Review of Systems: All systems reviewed & are unremarkable except as noted in HPI and below FOR[facility]LY [facility], [facility] Past Medical History Medical History (Updated 09/20/25 @ 14:34 by Edvin Ryan MD) Obesity Chronic hypertension affecting Family History Family History Other No pertinent family history Social History Social History Smoking status: Never smoker Alcohol intake: current Substance use: never Lack of Transportation: No Lack of Food: Never True Current Housing: I Have Housing Concerned About Future Housing: No Difficulty Paying Gas/Electric Bills: No Difficulty Paying for Meds: No Currently Unemployed: No Education: Associate Degree Difficulty w/ Childcare or Family Care: No Living arrangements: with family Spiritual care concerns: No Meds Home Medications and Allergies Home Medications ?Medication ?Instructions ?Recorded ?Confirmed ?Type ferrous sulfate, dried 144 mg (45 144 mg PO BID 09/20/25 History mg iron) tablet,extended release (Slow Release Iron) aspirin 81 mg capsule 81 mg PO BID 08/31/25 History labetalol 200 mg tablet 400 mg PO .BID 08/31/2503/11 History vit no.95-ferrous 1 tablet PO DAILY 09/09/25 09/20/25 History fumarate 28 mg-folic acid 800 mcg tablet () Allergies Allergy/AdvReac Type Severity Reaction Status Date / Time No Known Allergies Allergy Verified 09/20/25 00:45 Vital Signs Vital Signs - 24 hr 09/20/25 00:44 09/20/25 00:49 09/20/25 00:50 Temperature Pulse Rate 84 Respiratory Rate Blood Pressure 161/89 H Pulse Oximetry 98 Oxygen Delivery Room Air 09/20/25 01:01 09/20/25 01:31 09/20/25 01:46 Temperature 98.7 F Pulse Rate 83 81 77 Respiratory Rate 18 Blood Pressure 143/77 H 139/76 140/73 Pulse Oximetry Oxygen Delivery 09/20/25 02:01 09/20/25 02:16 09/20/25 02:31 Temperature Pulse Rate 76 75 82 Respiratory Rate Blood Pressure 138/85 135/88 136/77 Pulse Oximetry Oxygen Delivery 09/20/25 02:46 09/20/25 03:01 09/20/25 03:16 Temperature Pulse Rate 78 86 69 Respiratory Rate Blood Pressure 131/75 138/81 131/75 Pulse Oximetry Oxygen Delivery 09/20/25 03:31 09/20/25 03:46 09/20/25 04:01 Temperature Pulse Rate 74 70 76 Respiratory Rate Blood Pressure 133/79 136/80 130/74 Pulse Oximetry Oxygen Delivery 09/20/25 04:16 09/20/25 04:30 09/20/25 05:15 Temperature Pulse Rate 75 87 87 Respiratory Rate Blood Pressure 130/79 144/85 H 134/88 Pulse Oximetry Oxygen Delivery 09/20/25 05:31 09/20/25 05:46 09/20/25 06:01 Temperature Pulse Rate 81 83 82 Respiratory Rate Blood Pressure 139/83 131/80 141/85 H Pulse Oximetry Oxygen Delivery 09/20/25 06:31 09/20/25 06:45 09/20/25 07:01 Temperature Pulse Rate 82 81 76 Respiratory Rate Blood Pressure 148/95 H 141/88 H 146/86 H Pulse Oximetry Oxygen Delivery 09/20/25 07:15 09/20/25 07:30 09/20/25 07:46 Temperature Pulse Rate 81 82 79 Respiratory Rate Blood Pressure 147/89 H 148/85 H 150/87 H Pulse Oximetry Oxygen Delivery 09/20/25 08:01 09/20/25 08:12 09/20/25 08:31 Temperature 98.5 F Pulse Rate 88 86 Respiratory Rate Blood Pressure 158/92 H 152/69 H Pulse Oximetry Oxygen Delivery 09/20/25 08:46 09/20/25 09:00 09/20/25 09:04 Temperature Pulse Rate 88 91 88 Respiratory Rate Blood Pressure 144/83 H 135/82 Pulse Oximetry Oxygen Delivery 09/20/25 09:15 09/20/25 09:30 09/20/25 09:45 Temperature Pulse Rate 86 88 84 Respiratory Rate Blood Pressure 136/84 132/78 132/83 Pulse Oximetry Oxygen Delivery 09/20/25 10:00 09/20/25 10:08 09/20/25 10:12 Temperature 97.9 F 97.9 F Pulse Rate 83 Respiratory Rate Blood Pressure 140/84 Pulse Oximetry Oxygen Delivery 09/20/25 10:16 09/20/25 10:30 09/20/25 10:45 Temperature Pulse Rate 76 81 Respiratory Rate Blood Pressure 143/81 H 142/84 H Pulse Oximetry 97 Oxygen Delivery 09/20/25 10:46 09/20/25 10:49 09/20/25 10:50 Temperature Pulse Rate 86 96 84 Respiratory Rate Blood Pressure 140/86 135/50 L 140/85 Pulse Oximetry 96 Oxygen Delivery 09/20/25 10:52 09/20/25 10:55 09/20/25 10:57 Temperature Pulse Rate 90 82 80 Respiratory Rate Blood Pressure 147/81 H 145/82 H 143/77 H Pulse Oximetry 96 Oxygen Delivery 09/20/25 10:59 09/20/25 11:00 09/20/25 11:02 Temperature Pulse Rate 80 83 85 Respiratory Rate Blood Pressure 121/77 136/84 148/80 H Pulse Oximetry 96 Oxygen Delivery 09/20/25 11:04 09/20/25 11:05 09/20/25 11:07 Temperature Pulse Rate 80 79 Respiratory Rate Blood Pressure 142/89 H 146/86 H Pulse Oximetry 99 Oxygen Delivery 09/20/25 11:09 09/20/25 11:10 09/20/25 11:13 Temperature Pulse Rate 75 78 78 Respiratory Rate Blood Pressure 142/89 H 141/84 H 146/79 H Pulse Oximetry 98 Oxygen Delivery 09/20/25 11:14 09/20/25 11:15 09/20/25 11:17 Temperature Pulse Rate 75 77 Respiratory Rate Blood Pressure 146/96 H 145/80 H Pulse Oximetry 99 Oxygen Delivery 09/20/25 11:19 09/20/25 11:20 09/20/25 11:25 Temperature Pulse Rate 78 74 Respiratory Rate Blood Pressure 136/75 138/80 Pulse Oximetry 98 99 Oxygen Delivery 09/20/25 11:30 09/20/25 11:31 09/20/25 11:35 Temperature Pulse Rate 76 Respiratory Rate Blood Pressure 139/77 Pulse Oximetry 98 98 Oxygen Delivery 09/20/25 11:40 09/20/25 11:45 09/20/25 11:46 Temperature Pulse Rate 75 Respiratory Rate Blood Pressure 139/76 Pulse Oximetry 98 98 Oxygen Delivery 09/20/25 11:50 09/20/25 11:55 09/20/25 12:00 Temperature Pulse Rate Respiratory Rate Blood Pressure Pulse Oximetry 97 98 98 Oxygen Delivery 09/20/25 12:01 09/20/25 12:05 09/20/25 12:09 Temperature 98.5 F Pulse Rate 76 Respiratory Rate Blood Pressure 147/89 H Pulse Oximetry 97 Oxygen Delivery 09/20/25 12:10 09/20/25 12:15 09/20/25 12:16 Temperature Pulse Rate 78 Respiratory Rate Blood Pressure 134/82 Pulse Oximetry 98 99 Oxygen Delivery 09/20/25 12:20 09/20/25 12:25 09/20/25 12:30 Temperature Pulse Rate Respiratory Rate Blood Pressure Pulse Oximetry 99 98 99 Oxygen Delivery 09/20/25 12:31 09/20/25 12:35 09/20/25 12:40 Temperature Pulse Rate 69 Respiratory Rate Blood Pressure 133/83 Pulse Oximetry 96 97 Oxygen Delivery 09/20/25 12:45 09/20/25 12:46 09/20/25 12:50 Temperature Pulse Rate 68 Respiratory Rate Blood Pressure 132/79 Pulse Oximetry 96 99 Oxygen Delivery 09/20/25 12:55 09/20/25 13:00 09/20/25 13:01 Temperature Pulse Rate 66 Respiratory Rate Blood Pressure 130/80 Pulse Oximetry 98 97 Oxygen Delivery 09/20/25 13:05 09/20/25 13:10 09/20/25 13:15 Temperature Pulse Rate Respiratory Rate Blood Pressure Pulse Oximetry 97 99 99 Oxygen Delivery 09/20/25 13:16 09/20/25 13:20 09/20/25 13:25 Temperature Pulse Rate 75 Respiratory Rate Blood Pressure 115/64 Pulse Oximetry 98 98 Oxygen Delivery 09/20/25 13:30 09/20/25 13:31 09/20/25 13:34 Temperature Pulse Rate 63 Respiratory Rate Blood Pressure 126/65 Pulse Oximetry 97 96 Oxygen Delivery 09/20/25 13:39 09/20/25 13:44 09/20/25 13:46 Temperature Pulse Rate 73 Respiratory Rate Blood Pressure 122/70 Pulse Oximetry 97 96 Oxygen Delivery 09/20/25 13:49 09/20/25 13:54 09/20/25 13:59 Temperature Pulse Rate Respiratory Rate Blood Pressure Pulse Oximetry 99 98 99 Oxygen Delivery 09/20/25 14:01 09/20/25 14:04 09/20/25 14:09 Temperature Pulse Rate 70 Respiratory Rate Blood Pressure 141/74 H Pulse Oximetry 99 99 Oxygen Delivery 09/20/25 14:14 09/20/25 14:16 09/20/25 14:19 Temperature Pulse Rate 70 Respiratory Rate Blood Pressure 149/83 H Pulse Oximetry 99 99 Oxygen Delivery 09/20/25 14:24 09/20/25 14:29 Temperature Pulse Rate Respiratory Rate Blood Pressure Pulse Oximetry 100 99 Oxygen Delivery Exam Const: General: comfortable and no acute distress Eyes: General: appearance normal, both eyes and all related structures Resp: Effort & Inspection: normal respiratory effort Cardio: Rate: regular rate : Other: SVE 4/50/-3, AROM with large amount of clear fluid Extrem: General: normal to inspection Psych: Mental Status: mental status grossly normal H&P: Results Labs Labs: Short CBC 09/20/25 Range/Units 00:22 WBC 9.9 (4.5-10.0) K/mm3 Hgb 11.3 L (12.0-15.0) g/dL Hct 33.9 L (37.0-47.0) % Plt Count 236 (150-375) k/mm3 BMP 09/20/25 09/20/25 09/20/25 00:22 00:22 00:22 Sodium 133 L Cancelled Potassium 4.3 Cancelled Chloride 106 Carbon Dioxide BUN Creatinine Glucose Calcium 09/20/25 09/20/25 09/20/25 00:22 00:22 00:22 Sodium Potassium Chloride Cancelled Carbon Dioxide 21 L Cancelled BUN 13 D Cancelled Creatinine 0.59 L Glucose Calcium 09/20/25 09/20/25 09/20/25 00:22 00:22 00:22 Sodium Potassium Chloride Carbon Dioxide BUN Creatinine Cancelled Glucose 98 Cancelled Calcium 9.6 Cancelled Liver Function 09/20/25 09/20/25 09/20/25 Range/Units 00:22 00:22 00:22 Total Bilirubin 0.7 Cancelled (0.2-1.3) mg/dL AST 22 Cancelled (14-36) U/L ALT 24 (6-35) U/L Alkaline Phosphatase (38-126) U/L Albumin (3.5-5.1) g/dL 09/20/25 09/20/25 09/20/25 Range/Units 00:22 00:22 00:22 Total Bilirubin (0.2-1.3) mg/dL AST (14-36) U/L ALT Cancelled (6-35) U/L Alkaline Phosphatase 163 H Cancelled (38-126) U/L Albumin 3.5 Cancelled (3.5-5.1) g/dL Assessment and Plan Assessment and plan (1) Obesity: Code(s): E66.9 - Obesity, unspecified Status: Acute (2) Chronic hypertension affecting : Code(s): O10.919 - Unspecified pre-existing hypertension complicating , unspecified trimester Status: Acute Assessment and Plan: - chronic HTN with superimposed preeclampsia without severe features - asymptomatic - diagnostic PC ratio - s/p cytotec x1; pitocin per protocol - AROM of large amount of clear fluid - continue induction
[2025-09-20] MEDS: OXYTOCIN 30 UNITS/NS 500 ML 30 UNITS/500 ML BAG 125 UNITS IV CONT (21:08)
--- NOTE | 2025-09-20 21:13 | PM.OBPRVD ---
OB - Vaginal Delivery Note Procedure Delivery date: 09/20/25 Events: Chronic Hypertension and Preeclampsia w/o severe features Induction method: Per Misoprostol Protocol Delivery augmentation: Rupture of Membranes and Pitocin Delivery monitor: External FHT and External Uterine Route of delivery: Episiotomy description: None Laceration Description: Perineal - 2nd Degree Delivery repair: vicryl Specimen: No Quantitative Blood Loss (ml): 100 Anesthesia type: Epidural Disposition: Floor Complications: Other complications (10 second shoulder dystocia) Narrative: See H&P and notes for details on patient's admission and labor. She progressed to complete cervical dilation and at the appropriate time began pushing. With adequate expulsive efforts by the mother, the baby's head was delivered without difficulty. Nuchal cord was not present. The baby's right shoulder was anterior but did not deliver easily. A shoulder dystocia was identified. The patient was placed in [place] and suprapubic pressure was applied. The anterior shoulder then delivered. The posterior shoulder and the rest of the baby delivered without difficulty. The umbilical cord was doubly clamped and cut after 60 seconds of delayed cord clamping. Care of the was then assumed by the nursing staff. [place] Baby Date of : 09/20/25 Time of : 20:50 Gestational Age by Date: 37 Infant gender: Male presentation: vertex position: Left Occiput Anterior Placenta delivery description: Expressed Cord Vessel Description: 3 Vessels and Delayed Cord Clamping
[2025-09-20] MEDS: WITCH HAZEL 40 PADS 1 PAD TOPICAL (22:54)
[2025-09-20] MEDS: BENZOCAINE 20% AER SPR (*SP) 56 GM CAN 1 SPRAY TOPICAL (22:54)
[2025-09-20] MEDS: IBUPROFEN 600 MG TABLET PO (22:54)
[2025-09-21 03:55] VITALS: BP 131/81; PULSE 79; RESP 18; TEMP 36; O2SAT 98
[2025-09-21 05:21] LABS: Hematocrit 32.7 % (37.0-47.0); Hemoglobin 10.7 g/dL (12.0-15.0)
--- NOTE | 2025-09-21 07:37 | P.PNOB_ITS ---
OB - PN: Subj Subjective Date/time seen: 09/21/25 07:37 Interval history: pp day 1 doing well some stich pain OB - PN: Obj Data Labs 09/21/25 04:01 09/20/25 00:22 Labs: Laboratory Results - last 24 hr 09/21/25 04:01 Hgb 10.7 L Hct 32.7 L OB - PN A/P Plan day: 1 Plan: routine care Time Spent With Patient Time: Total time spent is greater than 50% in coordination of care (as documented) at patient's floor/unit and/or counseling patient: Review of Systems 2 Review of Systems: All systems reviewed & are unremarkable except as noted in HPI and below Exam 2 Const: General: cooperative, healthy appearing and comfortable Chest: Chest palpation & inspection: normal inspection of the chest Resp: Effort & Inspection: normal respiratory effort Cardio: Rate: regular rate GI: Inspection: normal to inspection Skin: General skin exam: normal color
[2025-09-21 08:00] VITALS: BP 145/91; PULSE 87; RESP 16; TEMP 36.4; O2SAT 97
[2025-09-21 09:45] VITALS: PULSE 91
[2025-09-21] MEDS: MULTIVIT/MIN/PREN/FOL AC/IRON TABLET 1 TAB PO (09:45)
[2025-09-21] MEDS: LABETALOL HCL 100 MG TABLET 400 MG PO ×2 (09:45→20:00)
[2025-09-21 12:25] VITALS: BP 144/71; PULSE 98; RESP 16; TEMP 36.4; O2SAT 97
--- NOTE | 2025-09-21 17:07 | WPDANLDPN2 ---
Anes-Prog Note L&D Date/Time: 09/21/25 17:07 Comfortable throughout: labor and delivery Neuraxial method: epidural Epidural/Spinal procedure site: clean & non-tender Neuro status: Neuro function grossly intact. Cardiovascular status: normal Respiratory status: normal Airway patency: baseline Mental status: baseline Post-Op hydration status: normal Vital Signs: Last Vital Signs Temp 36.4 C 09/21/25 12:25 Pulse 98 09/21/25 12:25 Resp 16 09/21/25 12:25 BP 144/71 H 09/21/25 12:25 Pulse Ox 97 09/21/25 12:25 O2 Del Method Room Air 09/20/25 00:44 Pain score (VAS): 11/26 I/O: Intake & Output 09/21/25 09/21/25 09/21/25 07:59 15:59 23:59 Intake Total 100 Output Total 250 Balance -250 100 Post-procedural complaints: none Patient feedback: Patient satisfied with anesthetic care.
[2025-09-21] MEDS: IBUPROFEN 600 MG TABLET PO (18:03)
[2025-09-21 19:04] VITALS: BP 142/84; PULSE 91; RESP 18; TEMP 36.2; O2SAT 100
[2025-09-21 20:00] VITALS: PULSE 91
[2025-09-22 07:45] VITALS: BP 145/88; PULSE 85; RESP 18; TEMP 36.6; O2SAT 99
--- NOTE | 2025-09-22 08:00 | P.PNOB_ITS ---
OB - PN: Subj Subjective Date/time seen: 09/22/25 08:00 Interval history: pp day 1 doing well some stich pain Patient comments: no complaints, pain well controlled and tolerating diet OB - PN: Obj Data Labs 09/21/25 04:01 09/20/25 00:22 OB - PN A/P Plan day: 2 Plan: routine care and discharge home Time Spent With Patient Time: Total time spent is greater than 50% in coordination of care (as documented) at patient's floor/unit and/or counseling patient: Exam 2 Const: General: comfortable and no acute distress Resp: Effort & Inspection: normal respiratory effort Auscultation: no rales, no rhonchi and no wheezes Cardio: Rate: regular rate Heart sounds: no click, no murmurs and no rubs GI: GI Palp: Yes Soft to palpation and No Tenderness to palpation present (GI) Auscultation: normal bowel sounds Extrem: General: normal to inspection, no pedal edema and no calf tenderness
--- NOTE | 2025-09-22 08:00 | PM.OBDSVD ---
DS: Admitting Diagnosis Discharge Date 09/22/2020 Admitting Diagnosis Term DS: Discharge Diagnosis Discharge Diagnosis (1) Term delivered: Code(s): O80 - Encounter for full-term uncomplicated delivery Status: Acute OB - DS: Summary OB Procedures : None OB Procedures Intrapartum: Spontaneous Vag Delivery OB Procedures: : None Peripartum Data Laceration Description: Perineal - 2nd Degree Episiotomy description: None Time Spent with Patient Time attestation: Total time spent providing and/or coordinating discharge services: Exam Const: General: comfortable and no acute distress Resp: Effort & Inspection: normal respiratory effort Auscultation: no rales, no rhonchi and no wheezes Cardio: Rate: regular rate Heart sounds: no click, no murmurs and no rubs GI: GI Palp: Yes Soft to palpation and No Tenderness to palpation present (GI) Auscultation: normal bowel sounds Extrem: General: normal to inspection, no pedal edema and no calf tenderness Discharge Plan Discharge Discharging Clinician: Corwin Pandey Patient Disposition: Home Activity: pelvic rest Diet: regular Patient Instructions: Antibiotic Form Patient Language: Hungarian Stand Alone Forms: General Discharge Information Follow-up/Referrals: Corwin Pandey MD [Physician, SC[employer]ING MANAGER] Discharge Medications: Continued Slow Release Iron 144 mg (45 mg iron) tablet extended release 144 mg PO BID PNV no.95-ferrous fumarate-FA [] 28 mg iron- 800 mcg tablet 1 tablet PO DAILY labetalol 200 mg tablet 400 mg PO .BID aspirin 81 mg capsule 81 mg PO BID Date of admission: 09/20/25 00:01 Primary Care Provider: UNKNOWN,DOCTOR Admitting Provider: Edvin Ryan Attending physician on admission: Edvin Ryan Condition: Stable
[2025-09-22 09:21] VITALS: PULSE 85
[2025-09-22] MEDS: LABETALOL HCL 100 MG TABLET 400 MG PO (09:21)
[2025-09-22] MEDS: DOCUSATE SODIUM 100 MG CAPSULE PO (09:22)
[2025-09-22] MEDS: IBUPROFEN 600 MG TABLET PO (11:31)
[2025-09-23 09:28] VITALS: BP 136/90; PULSE 78; RESP 18; TEMP 36.8; O2SAT 100
== END 2025-09-22 12:00 | disposition home or self-care (01) | DRG 807 ==
LOC: ANHOB2 09-22 08:02 → ANHLDR 09-23 08:40 → ANHOB2 09-23 08:40
PROVIDERS: Admitting Provider Obstetrics & Gynecology; Visit Provider Obstetrics & Gynecology
DX: O11.4 Pre-existing hypertension with pre-eclampsia, complicating childbirth (principal); Z37.0 Single live birth; Z3A.37 37 weeks gestation of pregnancy; O70.1 Second degree perineal laceration during delivery; O66.0 Obstructed labor due to shoulder dystocia
CPT/HCPCS: 36415; 80053; 84550; 85014; 85018; 85025; 86593; 86850; 86900; 86901; A9270; J2590; J2795; J7120